=== PATIENT | male | born 1945 | race Caucasian/White ===

== ENCOUNTER → 2016-08-05 | Outpatient (CLI) | payer OTHER ==
[~2016-08-05] MED LIST: ASPI1TAB83 PO; ATOR-24 PO; DILT120C43 PO; LISI-729 PO; LORA-741 PO; NITR0.4S UT; OXYC7.5T78 PO
== END | disposition home or self-care (01) ==
LOC: C.LAB 09:56
PROVIDERS: ATTEND Urology
DX: N40.0 Benign prostatic hyperplasia without lower urinary tract symptoms (principal); R39.9 Unspecified symptoms and signs involving the genitourinary system; R97.20 Elevated prostate specific antigen [PSA]

== ENCOUNTER → 2017-02-09 | Outpatient (CLI) | payer OTHER ==
--- NOTE | 2017-02-13 12:59 | CODING QUERY MEDICAL NECESSITY ---
SUPPORTING DIAGNOSIS NEEDED A supporting diagnosis is required for the test/procedure performed on this patient in order for us to be reimbursed by the patient's insurance. Please provide a supporting diagnosis for the following test/procedure listed below next to the test name along with your signature. *If there is no additional diagnosis for this patient that would support the following test/procedure please document that below next to the test/procedure. Test(s)/Procedure(s) that require a supporting diagnosis: * PSA DIAGNOSIS: Provider Signature: Date: Thank you Kristi Rivas [employer] Once completed, please kindly fax back to [phone] For questions please call [phone]
== END | disposition home or self-care (01) ==
LOC: C.LAB 09:09
PROVIDERS: ATTEND Urology
DX: N41.1 Chronic prostatitis (principal); R97.20 Elevated prostate specific antigen [PSA]; N40.1 Benign prostatic hyperplasia with lower urinary tract symptoms

== ENCOUNTER → 2017-04-23 | Outpatient (CLI) | payer OTHER ==
--- NOTE | 2017-04-23 08:01 | DIAGNOSTIC IMAGING REPORT ---
KUB CLINICAL HISTORY: 71 years-old Male presenting with N20.0 [id number]. TECHNIQUE: Single supine view of the abdomen was obtained. COMPARISON: 02/19/2016. FINDINGS: Previously noted calculus in the left kidney is unchanged in position. The presence of moderate stool burden and bowel gas degrade evaluation of the renal shadows. Allowing for this, no new renal calculus is noted. No calcification along the courses of the ureters. A calcification in the midline projecting over the bladder may represent a bladder calculus as seen on prior CT from 12/02/2014. Partially visualized internal fixation of the right femoral neck. IMPRESSION: 1. Moderate stool burden degrades evaluation. Allowing for this limitation, stable appearance of the left renal calculus. 2. Stable appearance of the suspected bladder calculus. Electronically signed by: Aleksandr Greene M.D. 04/23/2017 7:59 AM Dictated Date/Time: 04/23/2017 7:57 AM
== END | disposition home or self-care (01) ==
LOC: C.RAD 07:35
PROVIDERS: ATTEND Urology
DX: N20.0 Calculus of kidney (principal)

== ENCOUNTER → 2017-04-28 | Outpatient (CLI) | payer OTHER | END | disposition home or self-care (01) | LOC: C.LABSPEC 16:51 | PROVIDERS: ATTEND Urology | DX: R97.20 Elevated prostate specific antigen [PSA] (principal) ==

== ENCOUNTER → 2017-09-10 | Outpatient (CLI) | payer OTHER | END | disposition home or self-care (01) | LOC: C.LAB 08:47 | PROVIDERS: ATTEND Urology | DX: R97.20 Elevated prostate specific antigen [PSA] (principal) ==

== ENCOUNTER → 2017-09-15 | Outpatient (CLI) | payer OTHER | END | disposition home or self-care (01) | LOC: C.LABSPEC 17:06 | PROVIDERS: ATTEND Urology | DX: N39.0 Urinary tract infection, site not specified (principal) ==

== ENCOUNTER 2017-10-27 05:24 | Observation (INO) | payer OTHER ==
[2017-10-13 13:05] VITALS: BMI 31.0
--- NOTE | 2017-10-13 13:36 | PAT Medication Instructions ---
Service Date Oct 13, 2017. Current Home Medication List Aspirin (Aspirin), 81 MG PO QAM Atorvastatin (Lipitor), 40 MG PO QAM Diltiazem Hcl Coated Beads (Cartia Xt), 120 MG PO QAM Dutasteride (Avodart), 0.5 MG PO HS Lisinopril (Zestril), 5 MG PO QAM Lorazepam (Ativan), 0.5 MG PO QPM Nitroglycerin (Nitrostat), 0.4 MG UT UD PRN for Chest Pain Tamsulosin HCl (Tamsulosin HCl), 0.4 MG PO HS Medication Instructions For Your Scheduled Surgery -Continue as directed: Nitroglycerin (Nitrostat), 0.4 MG UT UD PRN for Chest Pain - Hold the following medications 7 days prior to surgery per your surgeon's instructions (OK per cardio): Aspirin (Aspirin), 81 MG PO QAM - Hold the following medications the morning of surgery: Lisinopril (Zestril), 5 MG PO QAM - Take the following medications the morning of surgery with a sip of water: Atorvastatin (Lipitor), 40 MG PO QAM Diltiazem Hcl Coated Beads (Cartia Xt), 120 MG PO QAM - Take the following medications as scheduled the night before surgery: Dutasteride (Avodart), 0.5 MG PO HS Lorazepam (Ativan), 0.5 MG PO QPM Tamsulosin HCl (Tamsulosin HCl), 0.4 MG PO HS If you have any questions please call us at [phone] or [phone] or [phone]
--- NOTE | 2017-10-13 14:21 | DIAGNOSTIC IMAGING REPORT ---
CHEST 2 VIEWS ROUTINE CLINICAL HISTORY: PAT preoperative evaluation COMPARISON STUDY: 12/02/2014 FINDINGS: Mild cardia megaly. Minimal atelectasis left base. Lungs otherwise appear clear. IMPRESSION: Minimal atelectasis left base. Mild cardia megaly. Otherwise negative study. The above report was generated using voice recognition software. It may contain grammatical, syntax or spelling errors. Electronically signed by: Bob Benites M.D. 10/13/2017 2:20 PM Dictated Date/Time: 10/13/2017 2:18 PM
[2017-10-13 15:32] LABS: BASO % 0.4 %; BASO ABS # 0.03 K/uL (0-0.2); EOS % 8.7 %; EOS ABS # 0.61 K/uL (0-0.5); HEMATOCRIT 46.8 % (42-52); HEMOGLOBIN 15.5 g/dL (14.0-18.0); IG# 0.01 K/uL (0.00-0.02); LYMPH % 29.4 %; LYMPH ABS # 2.06 K/uL (1.2-3.4); MEAN CELL VOLUME 91.6 fL (80-100); MEAN CORPUSCULAR HEMOGLOBIN 30.3 pg (25-34); MEAN CORPUSCULAR HGB CONC 33.1 g/dl (32-36); MEAN PLATELET VOLUME 11.5 fL (7.4-10.4); MONO % 7.4 %; MONO ABS # 0.52 K/uL (0.11-0.59); NEUT ABS # 3.77 K/uL (1.4-6.5); PLATELET COUNT 196 K/uL (130-400); RED CELL DISTRIBUTION WIDTH SD 43.4 fL (36.4-46.3)
[2017-10-13 15:41] LABS: CREATININE 1.09 mg/dl (0.60-1.40); POTASSIUM 4.2 mmol/L (3.5-5.1)
[2017-10-27] VITALS (9 sets, daily range): BP systolic 102–130; BP diastolic 58–71; PULSE 60–68; TEMP 36.4–36.8; O2SAT 90–96; Ht 180.3 cm; Wt 103.3 kg
[~2017-10-27] VITALS: Ht 180.3 cm; Wt 103.3 kg
[~2017-10-27 05:24] MED LIST changes: +DUTA0.5C PO; +FLM4 PO; -OXYC7.5T78 PO
[2017-10-27] MEDS ORDERED: GENTAMICIN INJ 160 MG in DEXTROSE 5% 100ML 100 ML IV SCH ×2 (06:00→07:00)
[2017-10-27] MEDS ORDERED: LACTATED RINGER'S 1000ML 1,000 ML IV SCH (06:00)
[2017-10-27] MEDS ORDERED: ATROPINE SULFATE 0.1 MG/ML 5ML SYR IV PRN (07:00)
[2017-10-27] MEDS ORDERED: HYDROmorphone INJ 2 MG/ML SYR/VIAL IV PRN (07:00)
[2017-10-27] MEDS ORDERED: ONDANSETRON INJ 2 MG/ML 2 ML VIAL IV PRN ×2 (07:00→09:45)
[2017-10-27] MEDS ORDERED: EpHEDrine SULFATE INJ 50 MG/ML AMP IV PRN (07:00)
[2017-10-27] MEDS ORDERED: PHENYLEPHRINE 100MCG/ML 5ML SYR IV PRN (07:00)
[2017-10-27] MEDS ORDERED: DEXAMETHASONE SOD INJ 4 MG/ML VIAL ONE (07:04)
[2017-10-27] MEDS ORDERED: FENTANYL CITRATE INJ 50 MCG/1 ML 2 ML VIAL ONE ×2 (07:04→08:36)
[2017-10-27] MEDS ORDERED: MIDAZOLAM HCL 1 MG/ML 2ML VIAL ONE (07:04)
[2017-10-27] MEDS ORDERED: LIDOCAINE HCL 2% 2 ML VIAL (20MG/ML) ONE (07:04)
[2017-10-27] MEDS ORDERED: ONDANSETRON INJ 2 MG/ML 2 ML VIAL ONE (07:04)
[2017-10-27] MEDS ORDERED: PROPOFOL IV EMULSION 10 MG/ML 20 ML VIAL IV ONE (07:04)
--- NOTE | 2017-10-27 07:20 | History & Physical Bridge Note ---
H&P Re-Evaluation Bridge Note: I have examined the patient, reviewed the History & Physical and in the interval since the performance of the History & Physical I have noted the following changes of clinical significance: No changes noted
[2017-10-27] MEDS ORDERED: PHENYLEPHRINE 100MCG/ML 5ML SYR ONE (08:03)
[2017-10-27] MEDS ORDERED: PHENYLEPHRINE HCL INJ 10 MG/ML VIAL ONE (08:03)
[2017-10-27] MEDS ORDERED: EpHEDrine SULFATE 50MG/5ML SYR ONE ×2 (08:03→08:06)
--- NOTE | 2017-10-27 09:25 | [facility] Post Operative Brief Note ---
Immediate Operative Summary Operative Date Oct 27, 2017. Pre-Operative Diagnosis incomplete emptying, bladder stones, and benign prostatic hyperplasia Post-Operative Diagnosis same as preop Procedure(s) Performed Bipolar Transurethral Resection Prostate, Cystolithopaxy Surgeon Dr. Joe Gottlieb Alcohol Still Operator Surgeon(s) None Estimated Blood Loss 50CC Findings Consistent with Post-Op Diagnosis Specimens A.) Bladder Stones for chemical analysis B.) Prostate Chips Drains 22 sloan 30 cc ballon Anesthesia Type General Complication(s) none
[2017-10-27] MEDS ORDERED: NITROGLYCERIN 0.4 MG SL PER TAB CHARGE UT PRN (09:45)
[2017-10-27] MEDS ORDERED: GENTAMICIN CONSULT ACTIVE PRN (09:45)
[2017-10-27] MEDS ORDERED: MoRPHine SULFATE 4 MG/ML 1 ML CARP\\VIAL IV PRN (09:45)
[2017-10-27] MEDS ORDERED: HYDROCODONE/ACETAMIN 5/325MG TAB PO PRN (09:45)
--- NOTE | 2017-10-27 11:05 | OPERATIVE REPORT ---
DATE OF OPERATION: 10/27/2017 PROCEDURE PERFORMED: Transurethral resection of the prostate as well as laser lithotripsy of bladder stone. HISTORY OF PRESENTATION: The patient is a 72-year-old male with history of chronic bladder infections and chronically elevated PSA, status post previous biopsy and multiple courses of antibiotics, with suspected chronic infection as a source of possible elevation of his PSA. On cystoscopy, he had bladder stone and a moderately obstructing prostate with large postvoid residuals in the office. We discussed the option of a TURP to try to get rid of the infected bladder stone as a source of possible infection and also get some prostate tissue for both pathology and to try to see if getting rid of some of the infected prostate might be of benefit. DESCRIPTION OF PROCEDURE: The patient was taken to the operating room where general anesthesia was given. He was given preoperative gentamicin and had Venodyne stockings placed prior to the anesthesia. He was prepped and draped in the usual sterile fashion in dorsal lithotomy position. A 21-Russian cystoscope was passed per urethra. There was a very small stricture which was easily dilated with the scope and then the bladder was carefully examined with the 30- and the 70-degree lens. There was no evidence of any tumor but there were 2 bladder stones, approximately 1 cm each located in the bladder. Using the scope and 550-degree laser fiber through a 5-Russian open-ended catheter, the stones were fragmented to multiple 2-3 mm pieces which were then removed using the resectoscope and a loop. After this was performed, the transurethral resection was performed. I did resect approximately 5-7 grams of tissue. There were some areas where pus could clearly be seen oozing from the prostate and in one area of the bladder neck where 3-4 mL of pus came, so there were clearly areas of infection in the prostate. Resection was performed down to the verumontanum but care was taken not to include the verumontanum and go beyond the verumontanum in terms of the resection, so there was some residual prostate at the apex. However, there was a clear open channel taken from the apex into the bladder and a picture was taken of this. There was no evidence of any bleeding at the end of the procedure. I did use a button after doing some resection to smooth up the prostate as well as to control all bleeding. At the end of the procedure, there was no evidence of any bleeding and a 22-Russian Hanson catheter was placed after all the chips had been removed from the bladder and the patient was transferred to the recovery room in stable condition. I attest to the content of the Intraoperative Record and any orders documented therein. Any exception s are noted below.
--- NOTE | 2017-10-27 11:07 | Anesthesiology Progress Note ---
Anesthesia Post Op Note Date & Time Oct 27, 2017 at 11:06 Vital Signs Pain Intensity: 0 Vital Signs Past 12 Hours Date Time Temp Pulse Resp B/P (MAP) Pulse Ox O2 Delivery O2 Flow Rate FiO2 10/27/17 10:40 36. 63 18 112/61 96 Nasal Cannula 2 10/27/17 10:30 36. 63 18 104/74 96 Nasal Cannula 2 10/27/17 10:20 36. 61 18 110/62 96 Nasal Cannula 2 10/27/17 10:10 36. 64 18 112/62 93 Room Air 10/27/17 10:00 64 18 114/63 98 Room Air 10/27/17 09:50 66 18 114/58 98 Oxymask 10 10/27/17 09:40 66 18 118/57 98 Oxymask 10 10/27/17 09:31 36. 70 16 113/63 96 Oxymask 10 10/27/17 05:45 36.5 68 18 130/68 (88) 96 Room Air Notes Mental Status: alert / awake / arousable, participated in evaluation Pt Amnestic to Procedure: Yes Nausea / Vomiting: adequately controlled Pain: adequately controlled Airway Patency, RR, SpO2: stable & adequate BP & HR: stable & adequate Hydration State: stable & adequate Anesthetic Complications: no major complications apparent
[2017-10-27] MEDS ORDERED: IV FLUIDS COMPLETED PRN (11:30)
[2017-10-27] MEDS: D5W AND 1/2NSS + 20MEQ KCL 1,000 ML IV SCH ×2 (11:54→20:33)
[2017-10-27] MEDS ORDERED: GENTAMICIN INJ 280 MG in DEXTROSE 5% 100ML 100 ML IV ONE (12:00)
[2017-10-27] MEDS ORDERED: LORAZEPAM 0.5 MG TAB PO SCH (21:00)
[2017-10-28 03:15] VITALS: BP 111/66; PULSE 68; TEMP 36.9; O2SAT 94
[2017-10-28] MEDS: D5W AND 1/2NSS + 20MEQ KCL 1,000 ML IV SCH ×2 (04:18→12:00)
[2017-10-28 08:17] VITALS: BP 124/74; PULSE 59; TEMP 36.5; O2SAT 97
[2017-10-28 08:55] VITALS: BP 121/71; PULSE 61
[2017-10-28] MEDS ORDERED: ATORVASTATIN 40 MG TAB PO SCH (09:00)
[2017-10-28] MEDS ORDERED: DILTIAZEM HCL 120 MG CAPCR PO SCH (09:00)
[2017-10-28] MEDS ORDERED: LISINOPRIL 5 MG TAB PO SCH (09:00)
[2017-10-28] MEDS ORDERED: GENTAMICIN INJ 80 MG in DEXTROSE 5% 100ML 100 ML IV ONE (09:00)
--- NOTE | 2017-10-28 09:35 | Progress Note ---
Subjective Date of Service: Oct 28, 2017. Subjective Pt evaluation today including: conversation w/ patient, chart review 72 yo male s/p cystolithopaxy and TURP. Pt's sloan catheter fell out overnight. He is voiding ~200ml per void, but continues to retain 600ml. Pt denies pain. Denies n/v. Review of Systems Constitutional: No fever, No chills Respiratory: No shortness of breath Cardiac: No chest pain Abdomen: No pain, No nausea, No vomiting Male : + hematuria Heme: No abnormal bleeding/bruising Objective Vital Signs Date Time Temp Pulse Resp B/P (MAP) Pulse Ox O2 Delivery O2 Flow Rate FiO2 10/28/17 08:55 61 121/71 (88) 10/28/17 08:17 36.5 59 18 124/74 (91) 97 Room Air 10/28/17 07:45 Room Air 10/28/17 03:15 36.9 68 16 111/66 (81) 94 Room Air 10/27/17 23:30 Room Air 10/27/17 23:05 36.7 60 16 108/63 (78) 95 Room Air 10/27/17 19:50 36.8 65 16 104/58 (73) 94 Room Air 10/27/17 16:20 36.7 65 18 104/65 (78) 90 Room Air 10/27/17 15:15 Nasal Cannula 3.0 10/27/17 14:22 67 20 102/60 (74) 91 Nasal Cannula 2.0 10/27/17 13:10 36.6 65 16 124/62 (82) 94 Nasal Cannula 2.0 10/27/17 12:23 36.5 61 16 103/61 (75) 90 Nasal Cannula 2.0 10/27/17 11:45 36.4 63 16 115/71 (86) 95 Nasal Cannula 2.0 10/27/17 10:50 Nasal Cannula 2.0 10/27/17 10:50 91 Nasal Cannula 2.0 10/27/17 10:50 36.5 66 18 115/71 (86) 91 Nasal Cannula 2.0 10/27/17 10:40 36. 63 18 112/61 96 Nasal Cannula 2 10/27/17 10:30 36. 63 18 104/74 96 Nasal Cannula 2 10/27/17 10:20 36. 61 18 110/62 96 Nasal Cannula 2 10/27/17 10:10 36. 64 18 112/62 93 Room Air 10/27/17 10:00 64 18 114/63 98 Room Air 10/27/17 09:50 66 18 114/58 98 Oxymask 10 10/27/17 09:40 66 18 118/57 98 Oxymask 10 10/27/17 09:31 36. 70 16 113/63 96 Oxymask 10 Physical Exam General Appearance: no apparent distress Eyes: normal inspection ENT: hearing grossly normal Neck: no JVD Respiratory/Chest: no respiratory distress, no accessory muscle use Cardiovascular: no JVD Extremities: normal inspection Neurologic/Psychiatric: alert, normal mood/affect, oriented x 3 Skin: normal color Laboratory Results Last 24 Hours Test 10/27/17 12:55 Hepatitis C Antibody Screen NEG Assessment and Plan POD #1 s/p TURP and cystolithopaxy AFVSS. Pt doing well post-op. 20Fr coude sloan catheter replaced for 700ml dark jarrett colored urine return. Urine initially dark jarrett, but was light pink at end of drainage. 20ml sterile water placed in balloon. Will plan to d/c home today with sloan catheter in place. TOV as an outpatient on Thursday10-30-17. D/c home with 3 days of Cipro. Discharge planning: home
[2017-10-28] MEDS ORDERED: CIPR1TAB10 PO (09:38)
--- NOTE | 2017-10-28 09:45 | Discharge Instructions ---
Discharge Instructions Date of Service Oct 28, 2017. Admission Reason for Admission: Benign Prostatic Hypertrophy, Bladder Stone Discharge Discharge Diagnosis / Problem: BPH, bladder stone Discharge Goals Goal(s): Decrease discomfort, Improve disease control, Therapeutic intervention Activity Recommendations Activity Limitations: as noted below Lifting Limitations: no more than 25 pounds (x 2 weeks) Exercise/Sports Limitations: rest today, gradually increase as tolerated ( Light activity x 2 weeks ) May Resume Sexual Activity: after follow-up appointment (when cleared by Dr. Gottlieb ) Shower/Bathe: no limitations (OK to shower. No tub baths with catheter in place. ) Driving or Machine Use: resume 1 day after discharge . Current Hospital Diet Patient's current hospital diet: AHA Diet (Heart Healthy) Discharge Diet Recommended Diet: Regular Diet Procedures Procedures Performed: Bipolar Transurethral Resection Prostate, Cystolithopaxy Pending Studies Studies pending at discharge: yes List of pending studies: prostate tissue Medical Emergencies . Who to Call and When: Medical Emergencies: If at any time you feel your situation is an emergency, please call 911 immediately. . Non-Emergent Contact Non-Emergency issues call your: Urologist Call Non-Emergent contact if: temperature is above 101.5, your pain is not controlled, your pain is worsening, your pain is unusual for you, your pain is concerning you, you have any medication questions . . "Provider Documentation" section prepared by Ilana Cavazos. .
[2017-10-28 10:19] VITALS: O2SAT 95
[2017-10-28 10:26] VITALS: BP 121/71; PULSE 61; TEMP 36.5; O2SAT 95
--- NOTE | 2017-10-28 10:42 | Anesthesiology Progress Note ---
Anesthesia Post Op Note Date & Time Oct 28, 2017 at 10:41 Vital Signs Pain Intensity: 2.0 Vital Signs Past 12 Hours Date Time Temp Pulse Resp B/P (MAP) Pulse Ox O2 Delivery O2 Flow Rate FiO2 10/28/17 10:19 95 Room Air 10/28/17 08:55 61 121/71 (88) 10/28/17 08:17 36.5 59 18 124/74 (91) 97 Room Air 10/28/17 07:45 Room Air 10/28/17 03:15 36.9 68 16 111/66 (81) 94 Room Air 10/27/17 23:30 Room Air 10/27/17 23:05 36.7 60 16 108/63 (78) 95 Room Air
== END 2017-10-28 12:18 | disposition home or self-care (01) ==
LOC: C.ACU 05:24 → C.MSW 09:43 → ENRESERV 10:38
PROVIDERS: ADMIT Urology; ATTEND Urology
DX: N21.0 Calculus in bladder (principal); N41.1 Chronic prostatitis; N42.32 Atypical small acinar proliferation of prostate; N40.1 Benign prostatic hyperplasia with lower urinary tract symptoms; N13.8 Other obstructive and reflux uropathy; R97.20 Elevated prostate specific antigen [PSA]; E78.00 Pure hypercholesterolemia, unspecified; I10 Essential (primary) hypertension; Z79.82 Long term (current) use of aspirin; Z79.899 Other long term (current) drug therapy

== ENCOUNTER 2018-10-07 22:28 | Inpatient (IN) ==
[2018-10-07] MEDS ORDERED: MoRPHine SULFATE 4 MG/ML 1 ML CARP\\VIAL IV STA (23:42)
[2018-10-07] MEDS ORDERED: ONDANSETRON INJ 2 MG/ML 2 ML VIAL IV STA (23:42)
[2018-10-08 00:12] LABS: Basophils # (auto) 0.01 K/uL (0-0.2); Basophils % (auto) 0.1 %; Eosinophils # (auto) 0.03 K/uL (0-0.5); Eosinophils % (auto) 0.4 %; Hematocrit (blood only) 45.3 % (42-52); Hemoglobin 15.1 g/dL (14.0-18.0); Immature Granulocytes # (auto) 0.02 K/uL (0.00-0.02); Immature Granulocytes % (auto) 0.2 %; Lymphocytes # (auto) 0.51 K/uL (1.2-3.4); Lymphocytes % (auto) 6.1 %; Mean Corpuscular Hgb Conc 33.3 g/dL (32-36); Mean Corpuscular Volume 91.5 fL (80-100); Mean Platelet Volume 11.9 fL (7.4-10.4); Monocytes # (auto) 0.27 K/uL (0.11-0.59); Monocytes % (auto) 3.3 %; Neutrophils # (auto) 7.46 K/uL (1.4-6.5); Neutrophils % (auto) 89.9 %; Platelet Count 180 K/uL (130-400); RDW Standard Deviation 43.3 fL (36.4-46.3); Red Blood Count 4.95 M/uL (4.7-6.1)
[2018-10-08 00:33] LABS: Albumin Level 3.6 gm/dl (3.4-5.0); BUN Creatinine Ratio 21.1 (10-20); Calcium 8.9 mg/dl (8.5-10.1); Creatinine Clr Calc Pharmacy 80.2 ml/min; Est GFR (Non-African American) 77.7
[2018-10-08 00:36] LABS: Albumin Globulin Ratio 0.9 (0.9-2); Bilirubin,Total 4.6 mg/dl (0.2-1); Globulin 3.8 gm/dl (2.5-4.0); Total Protein 7.4 gm/dl (6.4-8.2)
[2018-10-08] MEDS ORDERED: SODIUM CHLORIDE 0.9% 500 ML IV SCH (03:00)
--- NOTE | 2018-10-08 03:41 | History & Physical Report ---
Date of Service October 08, 2018 Assessment & Plan (1) Cholecystitis: Acute calculus cholecystitis Rule out choledocholithiasis with abnormal LFTs No sepsis for now Diarrhea rule out C. difficile CAD, stable cardiac disease as per [place] [facility] [place] last June 2018 hypertension, stable Hyperglycemia rule out DM hyperlipidemia on statin therapy GMF IV Ceftriaxone, Flagyl MRCP RE abnormal LFTs Surgery consult RE cholecystitis (ER provider already in touch with Dr. Adam.) Stool C. difficile check hemoglobin A1c DVT prophylaxis. SCDs RE possible surgery (Recommend pharmacologic anticoagulation with Lovenox 30 mg SQ daily once bleeding risk is deemed to be minimal and negligible pending Surgery evaluation.) Full code History of Present Illness Chief Complaint: Abdominal pain Primary Care Provider: Helder Rangel History obtained from patient, family, and records. Medical history significant for CAD, hypertension, hyperlipidemia, BPH, urolithiasis. Recent confinement October 2017 under urology service for TURP, bladder stone lithotripsy. 2 months ago patient and partner had the "stomach flu" which somewhat resolved. Diarrhea symptoms followed by intermittent achy upper abdominal discomfort with intermittent nausea and emesis, worsened with food intake. Patient seen at PCPs office 3 weeks ago. Abdominal ultrasound showed possible cirrhosis, hepatic and renal cysts, hydropic gallbladder with cholelithiasis, CT suggested for further evaluation of findings. Multiple hepatic cysts, distended gallbladder with cholelithiasis, bilateral renal cysts. Outpatient CT abdomen pelvis study done October 05 showed multiple hepatic cysts, distended gallbladder with cholelithiasis. PCP yet to contact patient on disposition for abnormal imaging results. Yesterday afternoon patient noted worsening upper a achy bdominal pain followed emesis symptoms. Loose stools, nonbloody, no fever, no chills. 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 Allergies Allergy/AdvReac Type Severity Reaction Status Date / Time Bactrim Allergy Unknown Rash/Hives Verified 10/27/17 05:39 sulfamethoxazole Allergy Unknown Rash/Hives Verified 10/07/18 23:33 trimethoprim Allergy Unknown Rash/Hives Verified 10/07/18 23:33 Home Medications Home Medications Medication Instructions Recorded Confirmed Type aspirin 81 mg PO DAILY 10/07/18 10/07/18 History atorvastatin 80 mg PO HS 10/07/18 10/07/18 History diltiazem HCl 120 mg PO QAM 10/07/18 10/07/18 History dutasteride 0.5 mg PO HS 10/07/18 10/07/18 History lisinopril 5 mg PO QAM 10/07/18 10/07/18 History lorazepam [Ativan] 0.5 mg PO HS 10/07/18 10/07/18 History nitroglycerin [Nitrostat] 0.4 mg SUBLINGUAL UD PRN 10/07/18 10/07/18 History Past Med/Surg History Medical History Myocardial infarction (Resolved) Femur fracture (Resolved) BPH loc w urin obs/LUTS BPH with elevated PSA Bradycardia (Acute) Obstructive uropathy (Acute) Renal stone (Acute) Hypertension Surgical History History of hip surgery (Resolved) H/O lithotripsy S/P TURP S/P cardiac catheterization S/P cataract surgery S/P colonoscopy Status post ORIF of fracture of ankle Social History Preferred Language: Occitan Communication Ability: Effective [employer]ed [employer]sembler Required: No Beliefs That Will Affect Care: None Current Living Situation: Significant Other Other Information That Helps Us Care for You: No Feels Safe at Home: Yes Safety Concerns: Feels Safe At This Time Smoking Status: Never smoker Hx Alcohol Use: Yes Hx Substance Use: No Review of Systems As per HPI, all 10 systems reviewed, all other ROS negative Physical Exam Vital Signs (Past 24 Hours): Last Vital Signs Temp 36.5 C 10/07/18 22:37 Pulse 60 10/08/18 02:36 Resp 18 10/08/18 02:36 BP 115/65 10/08/18 02:36 Pulse Ox 97 10/08/18 02:36 Physical Exam: GENERAL: Comfortable, pleasant, no respiratory distress SKIN: Normal color, warm HEENT: Partial alopecia, pink palpebral conjunctivae, no ptosis, dry buccal mucosa, nasal cannula in place NECK : Supple, no tenderness CHEST : CTA, no tenderness HEART : Bradycardic , no obvious murmurs ABDOMEN: Some distention, minimal epigastric tenderness EXTREMITIES : Chronic RLE swelling, no tenderness, no other conspicuous deformities noted NEUROLOGIC : Coherent, no facial asymmetry, no other gross focality Results & Data Laboratory Results Laboratory Results WBC 8.30 K/uL (4.8-10.8) 03/14/19 23:57 RBC 4.95 M/uL (4.7-6.1) 10/07/18 23:57 Hgb 15.1 g/dL (14.0-18.0) 10/07/18 23:57 Hct 45.3 % (42-52) 10/07/18 23:57 MCV 91.5 fL (80-100) 10/07/18 23:57 MCH 30.5 pg (25-34) 10/07/18 23:57 MCHC 33.3 g/dL (32-36) 10/07/18 23:57 RDW Std Deviation 43.3 fL (36.4-46.3) 10/07/18 23:57 RDW Coeff of Eriberto 13.0 % (11.5-14.5) 10/07/18 23:57 Plt Count 180 K/uL (130-400) 10/07/18 23:57 MPV 11.9 fL (7.4-10.4) H 10/07/18 23:57 Immature Gran % (Auto) 0.2 % 10/07/18 23:57 Neut % (Auto) 89.9 % 10/07/18 23:57 Lymph % (Auto) 6.1 % 10/07/18 23:57 [facility] % (Auto) 3.3 % 10/07/18 23:57 Eos % (Auto) 0.4 % 10/07/18 23:57 Baso % (Auto) 0.1 % 10/07/18 23:57 Immature Gran # (Auto) 0.02 K/uL (0.00-0.02) 10/07/18 23:57 Neut # (Auto) 7.46 K/uL (1.4-6.5) H 10/07/18 23:57 Lymph # (Auto) 0.51 K/uL (1.2-3.4) L 10/07/18 23:57 [facility] # (Auto) 0.27 K/uL (0.11-0.59) 10/07/18 23:57 Eos # (Auto) 0.03 K/uL (0-0.5) 10/07/18 23:57 Baso # (Auto) 0.01 K/uL (0-0.2) 10/07/18 23:57 Sodium 141 mmol/L (136-145) 10/07/18 23:57 Potassium 4.0 mmol/L (3.5-5.1) 10/07/18 23:57 Chloride 107 mmol/L (98-107) 10/07/18 23:57 Carbon Dioxide 29 mmol/L (21-32) 10/07/18 23:57 Anion Gap 5.0 (3-11) 10/07/18 23:57 BUN 21 mg/dl (7-18) H 10/07/18 23:57 Creatinine 0.97 mg/dl (0.6-1.4) 10/07/18 23:57 Est Cr Clr Drug Dosing 80.2 ml/min 10/07/18 23:57 Est GFR ( Amer) 90.0 10/07/18 23:57 Est GFR (Non-Af Amer) 77.7 10/07/18 23:57 BUN/Creatinine Ratio 21.1 (10-20) H 10/07/18 23:57 Glucose 146 mg/dl (70-99) H 10/07/18 23:57 Calcium 8.9 mg/dl (8.5-10.1) 10/07/18 23:57 Total Bilirubin 4.6 mg/dl (0.2-1) H 10/07/18 23:57 AST 399 U/L (15-37) H 10/07/18 23:57 ALT 256 U/L (12-78) H 10/07/18 23:57 Alkaline Phosphatase 289 U/L (45-117) H 10/07/18 23:57 Total Protein 7.4 gm/dl (6.4-8.2) 10/07/18 23:57 Albumin 3.6 gm/dl (3.4-5.0) 10/07/18 23:57 Globulin 3.8 gm/dl (2.5-4.0) 10/07/18 23:57 Albumin/Globulin Ratio 0.9 (0.9-2) 10/07/18 23:57 Lipase 97 U/L (73-393) 10/07/18 23:57 Diagnostic Findings Gallbladder ultrasound initial read multiple hepatic cysts, gallstones and sludge with wall thickening at 3-4 mm, unreliable sonographic Thomas sign. Chest x-ray as per my interpretation atelectasis EKG as per my interpretation rate 50, sinus bradycardia, T wave flattening inferior leads
[2018-10-08 04:00] LABS: Magnesium 2.3 mg/dl (1.8-2.4)
[2018-10-08] MEDS ORDERED: TRAMADOL HCL 50 MG TABLET PO PRN (06:01)
[2018-10-08] MEDS ORDERED: LORazepam 0.25 MG/0.5 ML VIAL IV PRN (06:01)
[2018-10-08] MEDS ORDERED: ACETAMINOPHEN 325 MG TAB PO PRN (06:01)
[2018-10-08] MEDS ORDERED: MoRPHine SULFATE 2 MG/ML CARP IV PRN (06:01)
[2018-10-08] MEDS ORDERED: PROCHLORPERAZINE 5 MG in SYRINGE 4 ML IV PRN (06:01)
[2018-10-08 06:25] LABS: Estimated Average Glucose 123 mg/dl; Hemoglobin A1C 5.9 % (4.5-5.6)
[2018-10-08] MEDS ORDERED: cefTRIAXone SODIUM 1,000 MG in DEXTROSE 5% 50 ML IV ONE (06:30)
[2018-10-08] MEDS: SODIUM CHLORIDE 0.45 % 1,000 ML IV SCH ×2 (06:32→23:56)
--- NOTE | 2018-10-08 06:46 | Emergency Department Note ---
Entered by Lauro Fields acting as a scribe for Deb Harrell DO History of Present Illness General Chief complaint: Abdominal Pain Stated complaint: LOWER ABDOMINAL PAIN, GALL BLADDER PAIN Time Seen by Provider: 10/07/18 23:03 Source: patient and family () History of Present Illness Provider complaint: Abdominal pain Onset (ago): week(s) 3 Location: abdomen Pain Consistency: + other ("comes in waves") Quality: + other (abdominal pain) Associated symptoms: + denies other symptoms (urinary symptoms), + nausea/vomiting (+vomiting) and + other (diarrhea) The patient is a 73 year old male who presents to the Emergency Room with complaints of lower abdominal pain that has been coming in waves for about 3 weeks. The patient states that he originally thought it was the stomach flu, but states that after it progressed he made an appointment to be evaluated. The patient states that he had blood work and an ultrasound of his lower abdomen 8 days ago and reports that he had a CT scan 2 days ago. The patient states that he believes the results of the ultrasound were inconclusive. Per the patient's appointment papers, the patient's CT scan results revealed multiple hepatic cysts, a distended gallbladder with stones, and bilateral renal cysts. The patient admits to 4-5 episodes of vomiting today which his states mainly consisted of "flem." The patient's reports that he threw up while in the ER as well. The patient admits to few episodes of diarrhea and states that he has been urinating normally. The patient admits to a history of kidney stones, but denies that this feels like his prior episodes. He also reports a history of an LA several years ago as well as high blood pressure. Home Medications Home Medications Medication Instructions Recorded Confirmed Type aspirin 81 mg PO DAILY 10/07/18 10/07/18 History atorvastatin 80 mg PO HS 10/07/18 10/07/18 History diltiazem HCl 120 mg PO QAM 10/07/18 10/07/18 History dutasteride 0.5 mg PO HS 10/07/18 10/07/18 History lisinopril 5 mg PO QAM 10/07/18 10/07/18 History lorazepam [Ativan] 0.5 mg PO HS 10/07/18 10/07/18 History nitroglycerin [Nitrostat] 0.4 mg SUBLINGUAL UD PRN 10/07/18 10/07/18 History Allergies Allergy/AdvReac Type Severity Reaction Status Date / Time Bactrim Allergy Unknown Rash/Hives Verified 10/27/17 05:39 sulfamethoxazole Allergy Unknown Rash/Hives Verified 10/07/18 23:33 trimethoprim Allergy Unknown Rash/Hives Verified 10/07/18 23:33 Past Med/Surg History Medical History Myocardial infarction (Resolved) Femur fracture (Resolved) BPH loc w urin obs/LUTS BPH with elevated PSA Bradycardia (Acute) Obstructive uropathy (Acute) Renal stone (Acute) Surgical History History of hip surgery (Resolved) Social History Feels Safe at Home: Yes Smoking Status: Never smoker Review of Systems See HPI for pertinent positives & negatives. and A total of 10 systems reviewed and were otherwise negative Physical Exam Vital Signs Vital Signs - 24 hr 10/07/18 22:37 10/08/18 00:07 10/08/18 00:13 Temperature 36.5 C Temperature Source Oral Sepsis Recent Fever Within 48 Hours No Sepsis Action Taken by Nursing No Action Required Pulse Rate 54 L Pulse Rate [Apical] 55 L Pulse Rate [Right Finger] Respiratory Rate 20 16 Respiratory Effort / Characteristics Non-Labored Spontaneous Non-Labored Spontaneous Respiratory Depth Normal Normal Blood Pressure 100/58 L Blood Pressure [Right Arm] 116/64 Blood Pressure Mean 72 Blood Pressure Mean [Right Arm] 81 Blood Pressure Position [Right Arm] Pulse Oximetry 94 87 L 95 Oxygen Delivery Method Room Air Room Air Nasal Cannula Oxygen Flow Rate 2 10/08/18 00:14 10/08/18 02:36 10/08/18 04:47 Temperature Temperature Source Sepsis Recent Fever Within 48 Hours Sepsis Action Taken by Nursing Pulse Rate Pulse Rate [Apical] 60 71 Pulse Rate [Right Finger] Respiratory Rate 18 18 Respiratory Effort / Characteristics Non-Labored Spontaneous Non-Labored Spontaneous Respiratory Depth Normal Normal Blood Pressure Blood Pressure [Right Arm] 115/65 126/72 Blood Pressure Mean Blood Pressure Mean [Right Arm] 81 90 Blood Pressure Position [Right Arm] Pulse Oximetry 87 L 97 97 Oxygen Delivery Method Room Air Nasal Cannula Room Air Oxygen Flow Rate 2 10/08/18 06:07 Temperature 36.8 C Temperature Source Oral Sepsis Recent Fever Within 48 Hours Sepsis Action Taken by Nursing Pulse Rate Pulse Rate [Apical] Pulse Rate [Right Finger] 58 L Respiratory Rate 16 Respiratory Effort / Characteristics Respiratory Depth Blood Pressure Blood Pressure [Right Arm] 119/72 Blood Pressure Mean Blood Pressure Mean [Right Arm] 87 Blood Pressure Position [Right Arm] Lying Pulse Oximetry 96 Oxygen Delivery Method Nasal Cannula Oxygen Flow Rate 2 General: Appears very uncomfortable HEENT: Head - normocephalic and atraumatic Pupils are equal, round, and reactive to light. Extraocular eye muscles are intact, and sclera are anicteric. Nose - moist nasal mucosa without discharge. Mouth - moist buccal mucosa. Oropharynx is nonerythematous and there is no tonsillar exudate or edema noted. Neck: Supple; no cervical lymphadenopathy. Heart: Regular rate and rhythm. There is a normal S1 and S2 with no murmurs, clicks, or gallops appreciated. Lungs: Clear to auscultation bilaterally with no wheezes, rales, or rhonchi. Abdomen: Soft, bilateral mid-abdominal pain with palpation, nondistended, with good bowel sounds. There are no palpable pulsatile masses or hepatosplenomegaly. There is no guarding, rigidity, or rebound noted. Extremities: No evidence of cyanosis, clubbing, or edema. There are easily palpable peripheral pulses. Skin: Pale, warm and dry with good turgor and no rashes. Course 2331: Past medical records reviewed. The patient was evaluated in room A12B, and a complete history and physical examination were performed. An IV lock were initiated and labs were drawn as above. Patient was given a dose of IV morphine and IV Zofran along with some IV normal saline solution. 0044: I reviewed the patient's results of abdominal x-ray from 09/22/18 which were unremarkable. I also reviewed the patient's abdominal ultrasound completed on 09/22/18 which revealed suggested cirrhosis, hepatic and renal cysts, a poorly visualized gallbladder with stones, and non-obstructing left nephrolithiasis. Labs from 09/22 revealed an ALT of 11 whereas today it is 256, an AST of 17 whereas today it was 399, and an ALK PHOS of 88 whereas today s was 289. 0045: I discussed the test results with the patient. 0245: I reevaluated the patient and he states he is feeling comfortable. We will hang another bag of IV fluids. Dr. Adam, General Surgery, was paged. 0251: I reviewed the patient's case with Dr. Adam, General Surgery. He states to have the patient admitted. Dr. Pa, [facility] Hospitalist, will evaluate the patient for further management. Consultations Consultation #1: Dr. Adam, General Surgery Time: 02:51 [facility]ation [facility]: [facility]51 Administered Medications Sodium Chloride (1/2 Nss) 1,000 mls @ 60 mls/hr IV .[id number] DIANA Stop: 11/07/18 06:14 Last Admin: 10/08/18 06:32 Dose: 60 mls/hr Documented by: [id number] Discontinued Medications Sodium Chloride (Nss) 500 mls @ 125 mls/hr IV .Q4H DIANA Stop: 11/07/18 02:59 Last Admin: 10/08/18 03:06 Dose: 125 mls/hr Documented by: [id number] Morphine Sulfate (Morphine Sulfate) 4 mg IV NOW STA Stop: 10/07/18 23:43 Last Admin: 10/08/18 00:08 Dose: 4 mg Documented by: [id number] Ondansetron HCl (Zofran) 4 mg IV NOW STA Stop: 10/07/18 23:43 Last Admin: 10/08/18 00:08 Dose: 4 mg Documented by: [id number] Medical Decision Making Differential Diagnosis The patient is a 73 year old male who presents to the Emergency Room with complaints of lower abdominal pain that has been coming in waves for about 3 w eeks. Differential diagnosis includes ureteral colic, diverticulitis, colitis, and cholecystitis. Medical Records Attestation: I reviewed the patient's medical records. Home Medications Current Medication List: was personally reviewed by me Laboratory Data Attestation: I reviewed the patient's lab results. Result diagrams: 10/07/18 23:57 10/07/18 23:57 Lab Results 10/07/18 10/07/18 10/07/18 Range/Units 23:57 23:57 23:57 WBC 8.30 (4.8-10.8) K/uL RBC 4.95 (4.7-6.1) M/uL Hgb 15.1 (14.0-18.0) g/dL Hct 45.3 (42-52) % MCV 91.5 (80-100) fL MCH 30.5 (25-34) pg MCHC 33.3 (32-36) g/dL RDW Std Deviation 43.3 (36.4-46.3) fL RDW Coeff of Eriberto 13.0 (11.5-14.5) % Plt Count 180 (130-400) K/uL MPV 11.9 H (7.4-10.4) fL Immature Gran % (Auto) 0.2 % Neut % (Auto) 89.9 % Lymph % (Auto) 6.1 % [place] % (Auto) 3.3 % Eos % (Auto) 0.4 % Baso % (Auto) 0.1 % Immature Gran # (Auto) 0.02 (0.00-0.02) K/uL Neut # (Auto) 7.46 H (1.4-6.5) K/uL Lymph # (Auto) 0.51 L (1.2-3.4) K/uL [place] # (Auto) 0.27 (0.11-0.59) K/uL Eos # (Auto) 0.03 (0-0.5) K/uL Baso # (Auto) 0.01 (0-0.2) K/uL Sodium 141 (136-145) mmol/L Potassium 4.0 (3.5-5.1) mmol/L Chloride 107 (98-107) mmol/L Carbon Dioxide 29 (21-32) mmol/L Anion Gap 5.0 (3-11) BUN 21 H (7-18) mg/dl Creatinine 0.97 (0.6-1.4) mg/dl Est Cr Clr Drug Dosing 80.2 ml/min Est GFR ( Amer) 90.0 Est GFR (Non-Af Amer) 77.7 BUN/Creatinine Ratio 21.1 H (10-20) Glucose 146 H (70-99) mg/dl Estimat Average Glucose 123 mg/dl Hemoglobin A1c 5.9 H (4.5-5.6) % Calcium 8.9 (8.5-10.1) mg/dl Magnesium 2.3 (1.8-2.4) mg/dl Total Bilirubin 4.6 H (0.2-1) mg/dl AST 399 H (15-37) U/L ALT 256 H (12-78) U/L Alkaline Phosphatase 289 H (45-117) U/L Total Protein 7.4 (6.4-8.2) gm/dl Albumin 3.6 (3.4-5.0) gm/dl Globulin 3.8 (2.5-4.0) gm/dl Albumin/Globulin Ratio 0.9 (0.9-2) Lipase 97 (73-393) U/L TSH 0.995 (0.300-4.500) uIu/ml Imaging Data Radiologist's Impression: Radiology results as stated below per my review and the radiologist's interpretation: US RUQ: Comparison: December 02, 2014 CT exam. Technically limited study due to bowel gas. Multiple hepatic cysts, largest measuring up to 9 cm. Suboptimal evaluation of the gallbladder. Suspected gallstones and sludge with wall thickening at 3-4 mm. The sonographic Thomas sign is unreliable due to pain medication. Common duct is not well seen. Obscuration of the pancreas by bowel gas. Right renal cyst. No hydronephrosis. Remainder unremarkable. Radiologist: Stanford Padilla M.D. Study ready at 02:03 and intial results transmitted at 02:37 ECG Data Attestation: I personally reviewed and interpreted this ECG as follows: Indication: other (abdominal pain) Rate (beats per minute): 47 Rhythm: sinus bradycardia Findings: + other (no ischemia); no ectopy Blood Pressure Blood Pressure Findings: Normal blood pressure Blood Pressure Disposition: did not require urgent referral MDM Narrative The patient is a 73 year old male who presents to the Emergency Room with complaints of lower abdominal pain that has been coming in waves for about 3 weeks. I reviewed the results of the previous CT scan of the abdomen/pelvis as well as a complete abdominal ultrasound and laboratory studies. The patient's pain has drastically worsened tonight. It was noted that his transaminases and alkaline phosphatase had significantly increased since September 22. Ultrasound of the gallbladder tonight shows some mild gallbladder wall thickening and sludge and stones were present. Because the patient significant pain as well as the elevated LFTs, I think the patient is suffering from acute cholecystitis. I discussed the case with the surgeon operations support professionals and he recommended admission to internal medicine for a possible HIDA scan and GI consult as well. Impression & Plan Cholelithiasis, Abdominal pain, diffuse Discharge Plan Visit Data *Final* Discharge Date/Time: 10/08/18 04:52 Chief Complaint: Abdominal Pain Stated Complaint: LOWER ABDOMINAL PAIN, GALL BLADDER PAIN ED Provider: Deb Harrell Discharge Problem: Cholelithiasis, Abdominal pain, diffuse Patient Disposition: Admitted As Inpatient Discharge Instructions Interventions: ED Discharge Assessment Last Done: 10/08/18 04:52 Discharge Problem: Cholelithiasis Qualifiers: Cholelithiasis location: gallbladder Cholecystitis presence: with cholecystitis Cholecystitis acuity: acute Biliary obstruction: without biliary obstruction Qualified Code(s): K80.00 - Calculus of gallbladder with acute cholecystitis without obstruction The scribe's documentation has been prepared under my direction and personally reviewed by me in its entirety. I confirm that the note above accurately reflects all work, treatment, procedures, and medical decision making performed by me.
--- NOTE | 2018-10-08 06:56 | XRay Report ---
XR chest 1V portable CLINICAL HISTORY: low o2 COMPARISON STUDY: Chest radiograph October 13, 2017. FINDINGS: There is no pneumothorax or pleural effusion. Cardiac size is normal. Mediastinal contours are unremarkable. Lung volumes are mildly diminished. There is no evidence for pulmonary edema. Linea r left basilar opacity favors atelectasis. IMPRESSION: 1. Linear left basilar opacity which favors atelectasis. 2. Low lung volumes. Electronically signed by: David Burch M.D. 10/08/2018 6:55 AM
--- NOTE | 2018-10-08 07:16 | Magnetic Resonance Report ---
MRCP CLINICAL HISTORY: Abdominal pain. Abnormal liver function tests. COMPARISON STUDY: CT of the abdomen and pelvis December 02, 2014. TECHNIQUE: Utilizing a 1.5 Nancy magnet, multiplanar, multiecho imaging of the abdomen was performed without intravenous contrast. FINDINGS: Multiple hepatic cysts are noted, including a 10.2 cm hepatic cyst within the gallbladder f rupert. Unenhanced images of the spleen, adrenal glands and pancreas are unremarkable. There is no panc reatic ductal dilatation. There is no peripancreatic infiltration. No abdominal lymphadenopathy is pr esent. The moderate to marked gallbladder distention with gallbladder wall thickening is noted. Sludg e and stones are noted within the gallbladder. Exam is compromised by respiratory motion artifact how ever there are is probable choledocholithiasis with a distal common bile duct calculus which measures approximately 6 mm. There is no biliary ductal dilatation. There are suspected bilateral renal cysts which are suboptimally assessed on this unenhanced examination. IMPRESSION: 1. Cholelithiasis, moderate to marked gallbladder distention and gallbladder wall thickening. These f indings suggest acute cholecystitis. 2. Suspected choledocholithiasis although exam mildly compromised by respiratory motion artifact. No biliary ductal dilatation. 3. Multiple hepatic and bilateral renal cysts. Electronically signed by: David Burch M.D. 10/08/2018 7:15 AM
--- NOTE | 2018-10-08 07:39 | Ultrasound Report ---
US gallbladder CLINICAL HISTORY: 73 years-old Male presenting with eval for choley, right upper quadrant pain, nause a, vomiting. TECHNIQUE: Real-time grayscale and limited color Doppler ultrasound imaging of the abdomen limited to the right upper quadrant was performed. COMPARISON: CT from 2015. FINDINGS: Pancreas: Largely obscured due to overlying bowel gas. Liver: Normal echogenicity and echotexture apart from the presence of multiple prominent hepatic cyst s. The liver measures 17.5 cm in maximal sagittal dimension. Main portal vein grossly patent with nor mal directional flow. Biliary: No intrahepatic biliary ductal dilatation. Common bile duct not well visualized. Gallbladder: Extensive hyperechogenic debris within the gallbladder with posterior shadowing, likely mixture of small gallstones and gallbladder sludge. The gallbladder is distended with wall thickening evident. The gallbladder measures 15 cm in length. Unable to assess sonographic Thomas's sign. Right kidney: Normal in appearance without evidence of hydronephrosis. Ascites: None. Other: None. IMPRESSION: Findings highly suspicious for acute calculus cholecystitis. Surgical consultation recommended. Confi rmation with HIDA scan could be obtained if there is clinical concern. The report will be called/faxed according to standard departmental protocol. Electronically signed by: Aleksandr Greene M.D. 10/08/2018 7:38 AM
[2018-10-08] MEDS: ASPIRIN 81 MG ECTAB PO SCH (08:46)
[2018-10-08] MEDS: AVODART~ORDER AWAITING ACTION SCH ×3 (08:46→23:56)
[2018-10-08] MEDS: dilTIAZem HCL 120 MG CAPCR PO SCH (08:46)
[2018-10-08] MEDS: LISINOPRIL 5 MG TAB PO SCH (08:46)
[2018-10-08] MEDS: metroNIDAZOLE 500 MG/100 ML BAG IV SCH ×3 (09:01→21:06)
--- NOTE | 2018-10-08 09:18 | Gastrointestinal Consultation ---
Date of Consultation October 08, 2018 Assessment & Plan (1) Choledocholithiasis with acute cholecystitis: Mr. Louis presents with RUQ pain, jaundice, imaging suggestive of choledocholithiasis He reports chills suggestive of cholangitis though no leukocytosis. Plan: 1. ERCP this afternoon by Dr. Dior. 2. IV fluids, antibiotics, NPO 3. Surgical consult for eventual cholecystectomy. Present on Admission?: Yes Supervising Physician Co-Signing Physician Notes I have personally seen and examined the patient with MCKAY Samson. Her note reflects my exam and findings. I agree with her impression and plan. Agree with ERCP given obstructive biliary numbers and MRI features. Discussed with patient and at bedside. Stella Gale M.D. History of Present Illness Reason for Consultation: Abnormal MRCP Requesting Physician: Dr. Pa Attending Physician: Henry Turcios MD History of Present Illness Mr. Christiano Louis is a 69 yr old male patient of Dr. Rangel with a hx of CAD/MA, BPH, kidney stones who reports 3-4 weeks of intermittent upper abdomen pain, nausea and diarrhea, typically after eating high fat foods. He has had a 15 lbs weight loss. when asked, he also reports intermittent chills, specifically occurring last night. He presented to [facility] ED last evening for severe pain. On arrival, LFTs were elevated: T Bili 4.6, AST 399, ALT 256, Alk Phos 289, but there was no leukocytosis or fever. Pt is awake, alert, hemodynamically stable, and is NPO, with IV fluids and antibiotics: Rocephin, Flagyl. He reports that the pain continues but is currently low grade. Allergies Allergy/AdvReac Type Severity Reaction Status Date / Time Bactrim Allergy Unknown Rash/Hives Verified 10/27/17 05:39 sulfamethoxazole Allergy Unknown Rash/Hives Verified 10/07/18 23:33 trimethoprim Allergy Unknown Rash/Hives Verified 10/07/18 23:33 Home Medications Home Medications Medication Instructions Recorded Confirmed Type aspirin 81 mg PO DAILY 10/07/18 10/07/18 History atorvastatin 80 mg PO HS 10/07/18 10/07/18 History diltiazem HCl 120 mg PO QAM 10/07/18 10/07/18 History dutasteride 0.5 mg PO HS 10/07/18 10/07/18 History lisinopril 5 mg PO QAM 10/07/18 10/07/18 History lorazepam [Ativan] 0.5 mg PO HS 10/07/18 10/07/18 History nitroglycerin [Nitrostat] 0.4 mg SUBLINGUAL UD PRN 10/07/18 10/07/18 History Patient History Medical History Myocardial infarction (Resolved) Femur fracture (Resolved) BPH loc w urin obs/LUTS BPH with elevated PSA Bradycardia (Acute) Obstructive uropathy (Acute) Renal stone (Acute) Hypertension Surgical History History of hip surgery (Resolved) H/O lithotripsy S/P TURP S/P cardiac catheterization S/P cataract surgery S/P colonoscopy Status post ORIF of fracture of ankle Social History Preferred Language: Greenlandic Communication Ability: Effective Tobacco Flavorer Required: No Beliefs That Will Affect Care: None Current Living Situation: Significant Other Other Information That Helps Us Care for You: No Feels Safe at Home: Yes Safety Concerns: Feels Safe At This Time Smoking Status: Never smoker Hx Alcohol Use: Yes Hx Substance Use: No Review of Systems Gen: Denies fever, weakness, weight loss. Eyes: no vision changes, no eye redness or pain Respiratory: No SOB, no cough Cardiovascular: No irregular heartbeats or chest pain Abdomen: + abdominal pain, nausea, vomiting, diarrhea. Ext: No edema Hem: No excessive bruising/bleeding skin: no jaundice, itching or rashes Physical Exam Vital Signs (Past 24 Hours): Last Vital Signs Temp 36.8 C 10/08/18 06:07 Pulse 58 L 10/08/18 06:07 Resp 16 10/08/18 06:07 BP 119/72 10/08/18 06:07 Pulse Ox 96 10/08/18 06:07 Constitutional: WD/WN, vitals as above average body habitus and cooperative Eyes: PERRL, conjunctivae normal, anicteric sclerae ENMT: external ear and nose normal, oropharynx normal Neck: trachea midline, no thyromegaly Respiratory: normal respiratory effort, lungs clear to auscultation Cardiovascular: RRR, no murmur, no edema Gastrointestinal (Abdomen): Inspection/Auscultation: abdomen not distended Percussion/Palpation: + abdomen tender (epigastric) and abdomen soft Skin: normal turgor and + jaundice; no lesions Neurologic: PERRL, EOMI, accommodation nl, no face palsy, no dysarthria Psychiatric: A+Ox3, euthymic affect Lymphatic: no cervical or axillary lymphadenopathy Left lower arm with non tender, non pulsatile protruberant soft mass - ? lymphedema Results & Data Laboratory Results See HPI Diagnostic Findings MRCP: 1. Cholelithiasis, moderate to marked gallbladder distention and gallbladder wall thickening. These findings suggest acute cholecystitis. 2. Suspected choledocholithiasis although exam mildly compromised by respiratory motion artifact. No biliary ductal dilatation. 3. Multiple hepatic and bilateral renal cysts. US: Findings highly suspicious for acute calculus cholecystitis. Surgical consultation recommended. Confirmation with HIDA scan could be obtained if there is clinical concern.
[2018-10-08 09:29] LABS: Basophils # (auto) 0.02 K/uL (0-0.2); Basophils % (auto) 0.3 %; Eosinophils # (auto) 0.09 K/uL (0-0.5); Eosinophils % (auto) 1.1 %; Hematocrit (blood only) 43.2 % (42-52); Hemoglobin 14.2 g/dL (14.0-18.0); Immature Granulocytes # (auto) 0.02 K/uL (0.00-0.02); Immature Granulocytes % (auto) 0.3 %; Lymphocytes # (auto) 1.44 K/uL (1.2-3.4); Lymphocytes % (auto) 18.4 %; Mean Corpuscular Hgb Conc 32.9 g/dL (32-36); Mean Corpuscular Volume 91.7 fL (80-100); Mean Platelet Volume 12.2 fL (7.4-10.4); Monocytes # (auto) 0.55 K/uL (0.11-0.59); Neutrophils # (auto) 5.72 K/uL (1.4-6.5); Neutrophils % (auto) 72.9 %; Platelet Count 191 K/uL (130-400); RDW Coefficient of Variation 13.1 % (11.5-14.5); RDW Standard Deviation 43.9 fL (36.4-46.3); Red Blood Count 4.71 M/uL (4.7-6.1); White Blood Count 7.84 K/uL (4.8-10.8)
[2018-10-08 09:57] LABS: Albumin Level 3.4 gm/dl (3.4-5.0); BUN Creatinine Ratio 23.3 (10-20); Calcium 8.9 mg/dl (8.5-10.1); Creatinine Clr Calc Pharmacy 87.3 ml/min; Est GFR (Non-African American) 85.4; Potassium 3.9 mmol/L (3.5-5.1)
[2018-10-08 10:02] LABS: Bilirubin,Total 3.9 mg/dl (0.2-1); Globulin 3.5 gm/dl (2.5-4.0); Total Protein 6.9 gm/dl (6.4-8.2)
--- NOTE | 2018-10-08 10:13 | Anesthesiology Consultation ---
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 Consults Requested none History Surgery Operation Date: 10/08/18 09:00 Proposed Procedures p Endoscopic Retrograde Cholangiopancreatogram - Mary Dior MD Height/Weight Height: 5 ft 11 in Weight: 92.7 kg Allergies Allergy/AdvReac Type Severity Reaction Status Date / Time Bactrim Allergy Unknown Rash/Hives Verified 10/27/17 05:39 sulfamethoxazole Allergy Unknown Rash/Hives Verified 10/07/18 23:33 trimethoprim Allergy Unknown Rash/Hives Verified 10/07/18 23:33 Medications Home Medications Medication Instructions Recorded Confirmed Last Taken aspirin 81 mg PO DAILY 10/07/18 10/07/18 10/07/18 atorvastatin 80 mg PO HS 10/07/18 10/07/18 10/06/18 diltiazem HCl 120 mg PO QAM 10/07/18 10/07/18 10/07/18 dutasteride 0.5 mg PO HS 10/07/18 10/07/18 Unknown lisinopril 5 mg PO QAM 10/07/18 10/07/18 10/07/18 lorazepam [Ativan] 0.5 mg PO HS 10/07/18 10/07/18 Unknown nitroglycerin [Nitrostat] 0.4 mg SUBLINGUAL UD PRN 10/07/18 10/07/18 Unknown Active Medications Generic Name Dose Route Start Last Admin Trade Name Freq PRN Reason Stop Dose Admin Aspirin 81 mg 10/08/18 09:00 10/08/18 08:46 Ecotrin Ectab PO 11/07/18 08:59 81 mg DAILY DIANA Administration Diltiazem HCl 120 mg 10/08/18 09:00 10/08/18 08:46 Cardizem Cd PO 11/07/18 08:59 120 mg QAM DIANA Administration Metronidazole 500 mg in 100 mls @ 100 mls/hr 10/08/18 06:30 10/08/18 10:14 Flagyl IV 10/18/18 06:29 Infused Q8 DIANA Titration Sodium Chloride 1,000 mls @ 60 mls/hr 10/08/18 06:15 10/08/18 09:35 1/2 Nss IV 11/07/18 06:14 60 mls/hr .[id number] DIANA Infusion Lisinopril 5 mg 10/08/18 09:00 10/08/18 08:46 Zestril PO 11/07/18 08:59 5 mg QAM DIANA Administration Miscellaneous 1 ea 10/08/18 08:00 10/08/18 08:46 Order Awaiting Action N/A 11/07/18 07:59 Not Given QS DIANA Past Medical History Medical History Myocardial infarction (Resolved) Femur fracture (Resolved) BPH loc w urin obs/LUTS BPH with elevated PSA Bradycardia (Acute) Obstructive uropathy (Acute) Renal stone (Acute) Hypertension Past Surgical History Surgical History History of hip surgery (Resolved) H/O lithotripsy S/P TURP S/P cardiac catheterization S/P cataract surgery S/P colonoscopy Status post ORIF of fracture of ankle Social History Smoking Status: Never smoker Hx Alcohol Use: Yes Alcohol type: wine alcohol intake frequency: a few times a week Hx Substance Use: No Physical Exam Vital Signs Last Vital Signs Temp 98.2 F 10/08/18 06:07 Pulse 58 L 10/08/18 06:07 Resp 16 10/08/18 06:07 BP 119/72 10/08/18 06:07 Pulse Ox 96 10/08/18 06:07 Testing Electrocardiogram Date: 10/07/18 Sinus bradycardia with sinus arrhythmia, rate 47 bpm Low voltage QRS Septal infarct , age undetermined Possible Inferior infarct , age undetermined When compared with ECG of 04-DEC-2014 07:35, No significant change was found Chest X-Ray Date: 10/08/18 1. Linear left basilar opacity which favors atelectasis. 2. Low lung volumes. Laboratory Results 10/08/18 08:54 10/08/18 08:54 Hemoglobin A1c 5.9 % (4.5-5.6) H 10/07/18 23:57
--- NOTE | 2018-10-08 10:28 | Surgery Consultation ---
Date of Consultation October 08, 2018 Assessment & Plan (1) Choledocholithiasis with acute cholecystitis: feeling better clinically. MRCP suggests CBD stone for ERCP today planning lap joy tomorrow am discussed risks /options ( bleeding/infection/bile leaks/injury to an organ/dvt/pe/mi/cva etc..) questions answered will tentatively plan lap joy tomorrow am pt agrees with plan History of Present Illness Attending Physician: Henry Turcios MD History of Present Illness pt has had some intermittent upper abdominal pain with n/v...yesterday had similar episode only more severe. w/u has revealed acute calculous cholecystitis and likely choledocholithiasis. Allergies Allergy/AdvReac Type Severity Reaction Status Date / Time Bactrim Allergy Unknown Rash/Hives Verified 10/27/17 05:39 sulfamethoxazole Allergy Unknown Rash/Hives Verified 10/07/18 23:33 trimethoprim Allergy Unknown Rash/Hives Verified 10/07/18 23:33 Home Medications Home Medications Medication Instructions Recorded Confirmed Type aspirin 81 mg PO DAILY 10/07/18 10/07/18 History atorvastatin 80 mg PO HS 10/07/18 10/07/18 History diltiazem HCl 120 mg PO QAM 10/07/18 10/07/18 History dutasteride 0.5 mg PO HS 10/07/18 10/07/18 History lisinopril 5 mg PO QAM 10/07/18 10/07/18 History lorazepam [Ativan] 0.5 mg PO HS 10/07/18 10/07/18 History nitroglycerin [Nitrostat] 0.4 mg SUBLINGUAL UD PRN 10/07/18 10/07/18 History Patient History Medical History Myocardial infarction (Resolved) Femur fracture (Resolved) BPH loc w urin obs/LUTS BPH with elevated PSA Bradycardia (Acute) Obstructive uropathy (Acute) Renal stone (Acute) Hypertension Surgical History History of hip surgery (Resolved) H/O lithotripsy S/P TURP S/P cardiac catheterization S/P cataract surgery S/P colonoscopy Status post ORIF of fracture of ankle Social History Preferred Language: Lao Communication Ability: Effective Operator Vacuum Required: No Beliefs That Will Affect Care: None Current Living Situation: Significant Other Other Information That Helps Us Care for You: No Feels Safe at Home: Yes Safety Concerns: Feels Safe At This Time Smoking Status: Never smoker Hx Alcohol Use: Yes Hx Substance Use: No Review of Systems negative except for as written in HPI Physical Exam Vital Signs (Past 24 Hours): Last Vital Signs Temp 36.8 C 10/08/18 06:07 Pulse 58 L 10/08/18 06:07 Resp 16 10/08/18 06:07 BP 119/72 10/08/18 06:07 Pulse Ox 96 10/08/18 06:07 Physical Exam: alert/oriented. nad Heent: Pearla. eomi. sclera appear white Heart: RRR Lungs: CTA b/l abd: soft. +ttp RUQ ext: no c/c/e
[2018-10-08 10:31] LABS: Appearance Urine Clear (Clear); Bacteria Urine Automated Negative (Negative); Blood Urine Negative (Negative); Epithelial Cell Urine Auto >30 /lpf (0-5); Glucose Urine UA Negative (Negative); Ketones Urine Trace (Negative); Leukocyte Esterase Urine 1+ (Negative); Nitrite Urine Positive (Negative); Protein Urine Negative (Negative); Specific Gravity Urine 1.027 (1.000-1.030); Urobilinogen Urine Positive (Negative)
[2018-10-08 10:33] LABS: Bilirubin Urine 2+ (Negative); Color Urine Amber; Ictotest Urine Positive (Negative)
[2018-10-08 10:53] LABS: Cast Urine Automated 0 /lpf (0-5)
[2018-10-08 10:54] LABS: Calcium Oxalate Crystals Urine Present (None Prsent); Mucus Urine Present (None Prsent)
--- NOTE | 2018-10-08 13:35 | History & Physical Bridge Note ---
Date of Service October 08, 2018 History & Physical Bridge Note I have examined the patient, reviewed the History & Physical and in the interval since the performance of the History & Physical I have noted the following changes of clinical significance: no changes noted ERCP for decompression of bile duct
[2018-10-08] MEDS ORDERED: ROCURONIUM BROMIDE 10 MG/ML 5 ML VIAL ONE (15:32)
[2018-10-08] MEDS ORDERED: PROPOFOL IV EMULSION 10 MG/ML 20 ML VIAL IV ONE (15:32)
[2018-10-08] MEDS ORDERED: LIDOCAINE HCL 2% 2 ML VIAL/AMP(20MG/ML) INFIL ONE (15:32)
[2018-10-08] MEDS ORDERED: fentaNYL citrate 100 MCG/2 ML VIAL ONE (15:32)
[2018-10-08] MEDS ORDERED: ONDANSETRON INJ 2 MG/ML 2 ML VIAL ONE (15:32)
[2018-10-08] MEDS ORDERED: HYDROmorphone INJ 2 MG/ML SYR/VIAL IV PRN (15:38)
[2018-10-08] MEDS ORDERED: fentaNYL citrate 100 MCG/2 ML VIAL IV PRN (15:38)
[2018-10-08] MEDS ORDERED: ONDANSETRON INJ 2 MG/ML 2 ML VIAL IV PRN (15:38)
[2018-10-08] MEDS ORDERED: DEXAMETHASONE SOD INJ 4 MG/ML VIAL IV PRN (15:38)
[2018-10-08] MEDS ORDERED: ATROPINE SULFATE 0.1 MG/ML 10ML SYR IV PRN (15:38)
[2018-10-08] MEDS ORDERED: ePHEDrine sulfate 50 MG/ML AMP IV PRN (15:38)
[2018-10-08] MEDS ORDERED: DEXAMETHASONE SOD INJ 4 MG/ML VIAL ONE (16:11)
[2018-10-08] MEDS ORDERED: INDOMETHACIN 50 MG SUPP PR ONE (16:21)
[2018-10-08] MEDS ORDERED: GLYCOPYRROLATE 0.2 MG/ML VIAL ONE (16:21)
[2018-10-08] MEDS ORDERED: NEOSTIGMINE METHYLSULFATE 5 MG/5 ML SYR ONE (16:21)
--- NOTE | 2018-10-08 16:31 | Operative Report ---
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 Any exceptions are noted below.
--- NOTE | 2018-10-08 16:52 | GI REPORT ---
Patient Name: Christiano Louis Procedure Date: 10/08/2018 11:43 AM Date of : 1945 Admit Type: Inpatient Age: 73 Gender: Male Attending MD: Mary Dior MD Procedure: ERCP Providers: Mary Dior MD Referring MD: Henry Turcios Md Indications: Abnormal MRCP, For therapy of bile duct stone(s), Jaundice Medicines: General Anesthesia Complications: No immediate complications. Estimated Blood Loss: Estimated blood loss: none. Procedure: Pre-Anesthesia Assessment: - Prior to the procedure, a History and Physical was performed, and patient medications and allergies were reviewed. The patient is competent. The risks and benefits of the procedure and the sedation options and risks were discussed with the patient. All questions were answered and informed consent was obtained. Patient identification and proposed procedure were verified by the physician and the nurse in the procedure room. Mental Status Examination: alert and oriented. Airway Examination: normal oropharyngeal airway and neck mobility. Respiratory Examination: clear to auscultation. CV Examination: normal. ASA Grade Assessment: II - A patient with mild systemic disease. After reviewing the risks and benefits, the patient was deemed in satisfactory condition to undergo the procedure. The anesthesia plan was to use general anesthesia. Immediately prior to administration of medications, the patient was re-assessed for adequacy to receive sedatives. The heart rate, respiratory rate, oxygen saturations, blood pressure, adequacy of pulmonary ventilation, and response to care were monitored throughout the procedure. The physical status of the patient was re-assessed after the procedure. After obtaining informed consent, the scope was passed under direct vision. Throughout the procedure, the patient's blood pressure, pulse, and oxygen saturations were monitored continuously. The Scope was introduced through the mouth, and advanced to the duodenum and used to inject contrast into the bile duct. The ERCP was accomplished without difficulty. The patient tolerated the procedure well. Findings: The affirmative action specialist film was normal. The esophagus was successfully intubated under direct vision. The scope was advanced to a normal major papilla in the descending duodenum without detailed examination of the pharynx, larynx and associated structures, and upper GI tract. The upper GI tract was grossly normal. A 0.035 inch straight standard wire was passed into the biliary tree. The Fusion OMNI sphincterotome was passed over the guidewire and the bile duct was then deeply cannulated. Contrast was injected. I personally interpreted the bile duct images. Ductal flow of contrast was adequate. Image quality was adequate. Contrast extended to the main bile duct. Opacification of the main bile duct was successful. The lower third of the main bile duct contained multiple stones. Biliary sphincterotomy was made with a monofilament Fusion OMNI sphincterotome using ERBE electrocautery. There was no post-sphincterotomy bleeding. The biliary tree was swept with an 11.5 mm balloon starting at the bifurcation. Sludge was swept from the duct. Many stones were removed. No stones remained. One 10 Fr by 7 cm plastic stent with a single external flap and a single internal flap was placed into the common bile duct. Bile flowed through the stent. The stent was in good position. The total fluoroscopy exposure time was 1 minute and 49 seconds. Indomethacin 100 mg was given via suppository to decrease the risk of post-ERCP pancreatitis (PEP). Impression: - Choledocholithiasis was found. Complete removal was accomplished by biliary sphincterotomy and balloon extraction. - One plastic stent was placed into the common bile duct. Recommendation: - [facility]. - Clear liquid diet. - Repeat ERCP in 4 weeks to remove stent. - Lap Dahlia tomorrow per surgery. - Recall Gi if needed. Mary Dior MD 10/08/2018 4:52:10 PM This report has been signed electronically. Note Initiated On: 10/08/2018 11:43 AM Number of Addenda: 0 I attest to the content of the Intraoperative Record and orders documented therein, exceptions below {[id number]}
--- NOTE | 2018-10-08 16:56 | Fluoroscopy Report ---
INTRAOPERATIVE RADIOGRAPHS CLINICAL HISTORY: ERCP procedure. Fluoroscopy time: 50 seconds. FINDINGS: 3 spot fluoroscopic views of the right upper quadrant from an ERCP procedure are correlated with MRCP dated 10/08/2018. The initial image shows numerous filling defects within the common bile d uct consistent with choledocholithiasis. A balloon sweep is performed. The third image shows a common bile duct stent in place. IMPRESSION: Intraoperative ERCP images as above. See operative report for detailed findings. Electronically signed by: Akash Heck M.D. 10/08/2018 4:54 PM
--- NOTE | 2018-10-08 17:18 | Anesthesiology Progress Note ---
Date of Service October 08, 2018 Anesthesia Post Procedure Vital Signs Vital Signs: Temp Pulse Pulse Pulse Resp BP BP 10/08/18 17:10 54 L 19 133/68 10/08/18 17:00 54 L 15 132/71 10/08/18 16:50 52 L 13 128/72 10/08/18 16:40 36.2 C L 56 L 18 119/68 10/08/18 15:36 36.5 C 82 16 112/66 10/08/18 06:07 36.8 C 58 L 16 119/72 10/08/18 04:47 71 18 126/72 10/08/18 02:36 60 18 115/65 10/08/18 00:14 10/08/18 00:13 55 L 16 116/64 10/08/18 00:07 10/07/18 22:37 36.5 C 54 L 20 100/58 L Pulse Ox 10/08/18 17:10 100 10/08/18 17:00 99 10/08/18 16:50 100 10/08/18 16:40 98 10/08/18 15:36 92 10/08/18 06:07 96 10/08/18 04:47 97 10/08/18 02:36 97 10/08/18 00:14 87 L 10/08/18 00:13 95 10/08/18 00:07 87 L 10/07/18 22:37 94 Pain Intensity Abdomen: Pain Intensity: 0 Notes Mental Status: alert / awake / arousable Patient Amnestic to Procedure: Yes Nausea / Vomiting: adequately controlled Pain: adequately controlled Airway Patency, RR, SpO2: stable & adequate BP & HR: stable & adequate Hydration State: stable & adequate Anesthetic Complications: no major complications apparent Notes: Awake, doing well, no complaints. VSS
--- NOTE | 2018-10-08 17:18 | Hospitalist Progress Note ---
Date of Service October 08, 2018 Assessment & Plan (1) Cholecystitis: Acute calculus cholecystitis Choledocholithiasis S/P ERCP:Removal of gallstones, Billiary Sphincterotomy, CBD stent placement Clear liquid diet NPO after midnight Lap Cholecystectomy in AM Appreciate GI/Surgery help Needs CBD stent removal in 4 weeks Monitor LFTs Continue IV Abx Diarrhea R/O C.diff if diarrhea reoccurs CAD stable Follows with [facility] cardiology Continue Aspirin, Cardizem, Lisinopril Hold Statin for now Hypertension stable Continue home meds Hyperglycemia A1C:5.9 Advise dietary changes Hyperlipidemia Hold statin DVT Px: SCDs RE surgery AM Code Status Full code Subjective Patient is seen and examined at [facility] States feeling better today Abd pain resolved Denies chest pain, SOB, dizziness, nausea Family at bedside Had ERCP today Physical Exam Vital Signs (Past 24 Hours): Last Vital Signs Temp 36.2 C L 10/08/18 16:40 Pulse 54 L 10/08/18 17:00 Resp 15 10/08/18 17:00 BP 132/71 10/08/18 17:00 Pulse Ox 99 10/08/18 17:00 Physical Exam: Physical Exam: Vitals signs as noted above General Appearance:Moderately built and nourished, no apparent distress Head: normocephalic, Atraumatic Eyes: normal inspection, EOMI Neck: supple, Trachea midline Respiratory/Chest: Normal breath sounds, CTA Cardiovascular: S1, S2, No murmur Abdomen/GI:Soft, Non tender, Bowel sounds present Extremities/Musculoskelatal:normal inspection, no edema Neurologic/Psych:AAOX3, grossly no focal neurological deficits Skin: normal color, warm Results & Data Laboratory Results Short CBC 10/07/18 10/08/18 Range/Units 23:57 08:54 WBC 8.30 7.84 (4.8-10.8) K/uL Hgb 15.1 14.2 (14.0-18.0) g/dL Hct 45.3 43.2 (42-52) % Plt Count 180 191 (130-400) K/uL BMP 10/07/18 10/08/18 23:57 08:54 Sodium 141 144 Potassium 4.0 3.9 Chloride 107 108 H Carbon Dioxide 29 30 BUN 21 H 21 H Creatinine 0.97 0.89 Glucose 146 H 93 Calcium 8.9 8.9 Liver Function 10/07/18 10/08/18 Range/Units 23:57 08:54 Total Bilirubin 4.6 H 3.9 H (0.2-1) mg/dl AST 399 H 365 H (15-37) U/L ALT 256 H 335 H (12-78) U/L Alkaline Phosphatase 289 H 275 H (45-117) U/L Albumin 3.6 3.4 (3.4-5.0) gm/dl Urine 10/08/18 Range/Units 10:15 Urine Color Cynthia Urine Appearance Clear (Clear) Urine pH 6.0 (4.5-7.5) Ur Specific [place] 1.027 (1.000-1.030) Urine Protein Negative (Negative) Urine Glucose (UA) Negative (Negative)
--- NOTE | 2018-10-08 19:07 | Anesthesiology Consultation ---
Date of Service October 08, 2018 Assessment & Plan (1) Encounter for pre-operative examination: Chart Review Chart Review: Acceptable Risk for Surgery and Patient NOT seen in Pre Admission Testing Consults Requested none ASA [id number] Proposed Anesthesia Anesthesia Type: General Risk / Benefits Reviewed With: PT / POA / Parent / Guardian, Accepts Plan and Informed Consent Obtained NPO Date Last Intake of Fluids: 10/08/18 Time Last Intake of Fluids: 22:00 Last Intake of Fluids Comment: sip of water with AM meds Date Last Intake of Solids: 10/08/18 Time Last Intake of Solids: 18:00 History Surgery Operation Date: 10/08/18 09:00 Proposed Procedures p Endoscopic Retrograde Cholangiopancreatogram - Mary Dior MD Operation Date: 10/09/18 07:30 Proposed Procedures p Laparoscopic Cholecystectomy, Possible Cholangiogram - Graeme Lindsay DO Height/Weight Height: 1.8 m Weight: 92.7 kg Allergies Allergy/AdvReac Type Severity Reaction Status Date / Time Bactrim Allergy Unknown Rash/Hives Verified 10/27/17 05:39 sulfamethoxazole Allergy Unknown Rash/Hives Verified 10/07/18 23:33 trimethoprim Allergy Unknown Rash/Hives Verified 10/07/18 23:33 Medications Home Medications Medication Instructions Recorded Confirmed Last Taken aspirin 81 mg PO DAILY 10/07/18 10/07/18 10/07/18 atorvastatin 80 mg PO HS 10/07/18 10/07/18 10/06/18 diltiazem HCl 120 mg PO QAM 10/07/18 10/07/18 10/07/18 dutasteride 0.5 mg PO HS 10/07/18 10/07/18 Unknown lisinopril 5 mg PO QAM 10/07/18 10/07/18 10/07/18 lorazepam [Ativan] 0.5 mg PO HS 10/07/18 10/07/18 Unknown nitroglycerin [Nitrostat] 0.4 mg SUBLINGUAL UD PRN 10/07/18 10/07/18 Unknown Active Medications Generic Name Dose Route Start Last Admin Trade Name Freq PRN Reason Stop Dose Admin Aspirin 81 mg 10/08/18 09:00 10/08/18 08:46 Ecotrin Ectab PO 11/07/18 08:59 81 mg DAILY DIANA Administration Diltiazem HCl 120 mg 10/08/18 09:00 10/08/18 08:46 Cardizem Cd PO 11/07/18 08:59 120 mg QAM DIANA Administration Metronidazole 500 mg in 100 mls @ 100 mls/hr 10/08/18 06:30 10/09/18 06:31 Flagyl IV 10/18/18 06:29 Infused Q8 DIANA Infusion Sodium Chloride 1,000 mls @ 60 mls/hr 10/08/18 06:15 10/09/18 06:08 1/2 Nss IV 11/07/18 06:14 60 mls/hr .[id number] DIANA Infusion Ceftriaxone Sodium 1,000 mg/ 50 mls @ 100 mls/hr 10/09/18 05:00 10/09/18 06:06 Dextrose IV 10/19/18 04:59 Infused Q24H DIANA Infusion Protocol Lisinopril 5 mg 10/08/18 09:00 10/08/18 08:46 Zestril PO 11/07/18 08:59 5 mg QAM DIANA Administration Lorazepam 0.5 mg 10/08/18 21:00 10/08/18 21:16 Ativan PO 11/07/18 20:59 Not Given HS DIANA Miscellaneous 1 ea 10/08/18 08:00 10/08/18 23:56 Order Awaiting Action N/A 11/07/18 07:59 Not Given QS DIANA Past Medical History Medical History Myocardial infarction (Resolved) 22 years ago Femur fracture (Resolved) BPH loc w urin obs/LUTS BPH with elevated PSA Bradycardia (Acute) Obstructive uropathy (Acute) Renal stone (Acute) Hypertension Past Surgical History Surgical History History of hip surgery (Resolved) H/O lithotripsy S/P ERCP 10/08/18 under GETA without apparent complications S/P TURP S/P cardiac catheterization S/P cataract surgery S/P colonoscopy Status post ORIF of fracture of ankle Past Anesthesia History No Hx of Anesthesia Complications and No Family Hx of Anesthesia Complications History of PONV No Motion Sickness Screening History of Motion Sickness: No Social History Smoking Status: Never smoker Do You Dip or Chew Tobacco: No Hx Alcohol Use: Yes Alcohol type: wine alcohol intake frequency: a few times a week Hx Substance Use: No Exercise / Class Metabolic Activity II 4-5 Yardwork/Stairs/Walk up hill Physical Exam Vital Signs Last Vital Signs Temp 36.5 C 10/09/18 03:49 Pulse 62 10/09/18 03:49 Resp 16 10/09/18 03:49 BP 95/58 L 10/09/18 03:49 Pulse Ox 94 10/09/18 03:49 ENMT Mouth: no TMJ abnormality and no TMJ clicking Thyromental Distance: > or= 3.5 Finger Breadths Mallampati Class: II Neck normal visual inspection; neck extension not limited Respiratory Auscultation: lungs clear to auscultation bilaterally Cardiovascular Rate/Rhythm: regular rhythm and + bradycardic (Sinus segun) Psychiatric Orientation: alert and oriented x 3 Testing Electrocardiogram Date: 10/07/18 Sinus bradycardia with sinus arrhythmia, rate 47 bpm Low voltage QRS Septal infarct , age undetermined Possible Inferior infarct , age undetermined When compared with ECG of 04-DEC-2014 07:35, No significant change was found Chest X-Ray Date: 10/08/18 1. Linear left basilar opacity which favors atelectasis. 2. Low lung volumes. Laboratory Results 10/08/18 08:54 10/09/18 06:15 Hemoglobin A1c 5.9 % (4.5-5.6) H 10/07/18 23:57 Urine Color Cynthia 10/08/18 10:15 Urine Appearance Clear (Clear) 10/08/18 10:15 Urine pH 6.0 (4.5-7.5) 10/08/18 10:15 Ur Specific [place] 1.027 (1.000-1.030) 10/08/18 10:15 Urine Protein Negative (Negative) 10/08/18 10:15 Urine Glucose (UA) Negative (Negative) 10/08/18 10:15 Urine Ketones Trace (Negative) H 10/08/18 10:15 Urine Nitrite Positive (Negative) H 10/08/18 10:15 Ur Leukocyte Esterase 1+ (Negative) H 10/08/18 10:15 Urine WBC (Auto) 10-30 /hpf (0-5) H 10/08/18 10:15 Urine RBC (Auto) 10-30 /hpf (0-4) H 03/15/19 10:15 U Hyaline Cast (Auto) 0 /lpf (0-5) 10/08/18 10:15 U Epithel Cells (Auto) >30 /lpf (0-5) H 10/08/18 10:15 Urine Bacteria (Auto) Negative (Negative) 10/08/18 10:15
[2018-10-08] MEDS: LORazepam 0.5 MG TAB PO SCH (21:16)
[2018-10-09] MEDS: cefTRIAXone SODIUM 1,000 MG in DEXTROSE 5% 50 ML IV SCH (05:32)
[2018-10-09] MEDS: metroNIDAZOLE 500 MG/100 ML BAG IV SCH ×3 (05:32→21:17)
[2018-10-09] MEDS ORDERED: BUPIVACAINE/EPINEPHRINE 0.5% MPF 1:200,000 30 ML VIAL ONE (06:44)
[2018-10-09] MEDS ORDERED: GLYCOPYRROLATE 0.2 MG/ML VIAL ONE ×2 (06:52→08:10)
[2018-10-09] MEDS ORDERED: NEOSTIGMINE METHYLSULFATE 5 MG/5 ML SYR ONE (06:52)
[2018-10-09] MEDS ORDERED: LIDOCAINE HCL 2% 2 ML VIAL/AMP(20MG/ML) INFIL ONE (06:52)
[2018-10-09] MEDS ORDERED: DEXAMETHASONE SOD INJ 4 MG/ML VIAL ONE (06:52)
[2018-10-09] MEDS ORDERED: MIDAZOLAM HCL 1 MG/ML 2ML VIAL ONE (06:52)
[2018-10-09] MEDS ORDERED: PROPOFOL IV EMULSION 10 MG/ML 20 ML VIAL IV ONE (06:52)
[2018-10-09] MEDS ORDERED: ONDANSETRON INJ 2 MG/ML 2 ML VIAL ONE (06:52)
[2018-10-09] MEDS ORDERED: fentaNYL citrate 100 MCG/2 ML VIAL ONE ×2 (06:53→10:01)
[2018-10-09 07:17] LABS: Albumin Level 2.9 gm/dl (3.4-5.0); BUN Creatinine Ratio 27.2 (10-20); Bilirubin Direct 0.6 mg/dl (0-0.2); Calcium 8.2 mg/dl (8.5-10.1); Creatinine Clr Calc Pharmacy 92.5 ml/min; Est GFR (African American) 101.4; Est GFR (Non-African American) 87.5
[2018-10-09 07:21] LABS: Bilirubin,Total 2.6 mg/dl (0.2-1); Total Protein 6.4 gm/dl (6.4-8.2)
--- NOTE | 2018-10-09 07:31 | History & Physical Bridge Note ---
Date of Service October 09, 2018 History & Physical Bridge Note I have examined the patient, reviewed the History & Physical and in the interval since the performance of the History & Physical I have noted the following changes of clinical significance: no changes noted
[2018-10-09] MEDS ORDERED: ATROPINE SULFATE 0.1 MG/ML 10ML SYR IV PRN (07:37)
[2018-10-09] MEDS ORDERED: HYDROmorphone INJ 1 MG/ML SYRINGE IV PRN (07:37)
[2018-10-09] MEDS ORDERED: ONDANSETRON INJ 2 MG/ML 2 ML VIAL IV PRN (07:37)
[2018-10-09] MEDS ORDERED: ePHEDrine sulfate 50 MG/ML AMP IV PRN (07:37)
[2018-10-09] MEDS ORDERED: PHENYLEPHRINE 100MCG/ML 5ML SYR IV PRN (07:37)
[2018-10-09] MEDS ORDERED: LARYING-O-JET KIT (LTA) ONE (08:11)
[2018-10-09] MEDS ORDERED: ROCURONIUM BROMIDE 10 MG/ML 5 ML VIAL ONE (08:11)
[2018-10-09] MEDS ORDERED: ePHEDrine sulfate 50 MG/ML SYR ONE (08:11)
[2018-10-09] MEDS ORDERED: KETOROLAC 30 MG/ML VIAL ONE (08:13)
--- NOTE | 2018-10-09 09:54 | Operative Report ---
Post Operative Report Pre & Post Diagnosis Operation Date: 10/08/18 09:00 Pre-Op Diagnosis: CHOLECYSTITIS Post-Op Diagnosis: CHOLECYSTITIS; Operation Date: 10/09/18 07:30 Pre-Op Diagnosis: CHOLECYSTITIS Post-Op Diagnosis: CHOLECYSTITIS; multiple hepatic cysts; adhesions Procedure Operation Date: 10/08/18 09:00 Actual Procedures p Endoscopic Retrograde Cholangiopancreatogram(Not Applicable) - Mary Dior MD Operation Date: 10/09/18 07:30 Actual Procedures p Laparoscopic Cholecystectomy(Not Applicable) ; enterolysis- Graeme Lindsay DO Surgeon Graeme Lindsay DO C Iron Worker None Estimated Blood Loss 20 Findings Consistent with Post-Op Diagnosis Specimens gallbladder Description of Procedure After informed consent was obtained the patient was taken to the operating room and placed in the supine position. After successful intubation the abdomen was sterilely prepped and draped in usual fashion. A periumbilical incision was made with an 11 blade scalpel and carried down through the soft tissue using electrocautery. The anterior rectus fascia was opened using electrocautery and 2 #0 Vicryl stay sutures were placed. The peritoneum was elevated with hemostats and incised under direct vision using Metzenbaum scissors. A finger sweep was performed and a 12 mm Montano trocar was placed. The abdomen was insufflated to 18 mmHg. The laparoscope was inserted and the abdomen was examined in 360. The gallbladder was massively enlarged and inflamed. There were also many what appeared to be simple hepatic cyst. There is a very large cyst abutting the gallbladder itself. A subxiphoid 5 mm port which would later be converted to a 12 mm port and 2 right upper quadrant 5 mm ports were placed under direct vision. The patient was placed in a reverse Trendelenburg position and slightly airplaned to the left. Because of the distention I had to drain the gallbladder partially with a gallbladder needle. I obtained dark thick bilious fluid. The gallbladder was grasped and elevated superiorly and laterally. A [place] dissector was used to take down adhesions around the neck of the gallbladder. The cystic duct was identified and skeletonized. Because of the inflammation in size of the duct I did not feel comfortably simply clipping it. I therefore converted the subxiphoid port to a 12 mm port and used a STEPHANIE brown cartridge stapler to transect the cystic duct right at the junction with the neck of the gallbladder. In similar fashion the cystic artery was identified and skeletonized clipped and divided. There was a second posterior branch to the cystic artery that was clipped and divided as well. The gallbladder was removed from the gallbladder fossa with electrocautery. This was a tedious dissection as I had to take care not to rupture the abutting cyst. I was able to remove the gallbladder without rupturing the gallbladder or the cyst. It was placed into an Endo Catch bag though it was too large to fit in even the largest bag that we have. I therefore had to extend the umbilical inc ision in order to remove the gallbladder. Thorough irrigation was performed. At the end of the procedure there was adequate hemostasis and no evidence of any bile leaks. A final look around the abdomen showed no other abnormalities. The gallbladder and trochars were all removed and the abdomen was desufflated. The fascia of the camera port was closed using 0 Vicryl in interrupted [id number] fashion. All the wounds were irrigated and closed using 4-0 Monocryl. I closed the deep space of the supraumbilical incision with 2-0 Vicryl and then 4- 0 Monocryl. Marcaine was injected around them for postoperative analgesia and skin glue used as a dressing. The patient was awaken extubated and transferred to recovery in stable condition. I attest to the content of the Intraoperative Record and any orders documented therein. Any exceptions are noted below.
[2018-10-09] MEDS: fentaNYL citrate 100 MCG/2 ML VIAL IV PRN ×4 (10:02→10:18)
--- NOTE | 2018-10-09 10:34 | Anesthesiology Progress Note ---
Date of Service October 09, 2018 Anesthesia Post Procedure Vital Signs Vital Signs: Temp Pulse Pulse Pulse Resp BP Pulse Ox 10/09/18 10:25 36.8 C 55 L 18 111/53 L 94 10/09/18 10:15 36.8 C 49 L 12 113/55 L 95 10/09/18 10:05 46 L 12 107/54 L 94 10/09/18 09:55 43 L 18 108/56 L 97 10/09/18 09:40 52 L 17 114/56 L 97 10/09/18 09:33 36.4 C L 59 L 10 L 108/57 L 97 10/09/18 03:49 36.5 C 62 16 95/58 L 94 10/08/18 22:42 36.5 C 55 L 16 101/65 93 10/08/18 19:34 36.7 C 60 16 122/76 90 10/08/18 18:46 36.8 C 51 L 18 131/70 93 10/08/18 18:07 36.3 C L 52 L 16 148/74 H 96 10/08/18 17:30 36.6 C 57 L 18 131/73 97 10/08/18 17:20 36.4 C L 53 L 16 133/73 100 10/08/18 17:10 54 L 19 133/68 100 10/08/18 17:00 54 L 15 132/71 99 10/08/18 16:50 52 L 13 128/72 100 10/08/18 16:40 36.2 C L 56 L 18 119/68 98 10/08/18 15:36 36.5 C 82 16 112/66 92 Pain Intensity Abdomen: Pain Intensity: 2 Notes Mental Status: alert / awake / arousable Patient Amnestic to Procedure: Yes Nausea / Vomiting: adequately controlled Pain: adequately controlled Airway Patency, RR, SpO2: stable & adequate BP & HR: stable & adequate Hydration State: stable & adequate Anesthetic Complications: no major complications apparent
[2018-10-09] MEDS ORDERED: HYDROCODONE/ACETAMOPHEN 5/325MG TAB PO PRN (10:50)
[2018-10-09] MEDS ORDERED: TAMSULOSIN HCL 0.4 MG CAP PO ONE (10:50)
[2018-10-09] MEDS: AVODART~ORDER AWAITING ACTION SCH ×3 (10:59→23:28)
[2018-10-09] MEDS: dilTIAZem HCL 120 MG CAPCR PO SCH (11:01)
[2018-10-09] MEDS: LISINOPRIL 5 MG TAB PO SCH (11:01)
[2018-10-09] MEDS: ASPIRIN 81 MG ECTAB PO SCH (11:08)
--- NOTE | 2018-10-09 16:23 | Hospitalist Progress Note ---
Date of Service October 09, 2018 Assessment & Plan (1) Choledocholithiasis with acute cholecystitis: Acute calculus cholecystitis Choledocholithiasis S/P ERCP:Removal of gallstones, Billiary Sphincterotomy, CBD stent placement S/P Laproscopic Cholecystectomy and Enterolysis POD #0 Advance diet as tolerated Appreciate GI/Surgery help Needs CBD stent removal in 4 weeks Monitor LFTs Continue IV Abx Pain control Diarrhea R/O C.diff if diarrhea reoccurs CAD stable Follows with [facility] cardiology Continue Aspirin, Cardizem, Lisinopril Hold Statin for now Hypertension stable Continue home meds Hyperglycemia A1C:5.9 Advise dietary changes Hyperlipidemia Hold statin DVT Px: SCDs RE Had Surgery today Code Status Full code Subjective Patient is seen and examined at beside Patient had cholecystectomy today Reports 4/10 Abd pain Also reports Urinary retention Denies chest pain, SOB, dizziness, nausea No Flatus/BM yet Physical Exam Vital Signs (Past 24 Hours): Last Vital Signs Temp 36.8 C 10/09/18 14:54 Pulse 64 10/09/18 14:54 Resp 17 10/09/18 14:54 BP 114/64 10/09/18 14:54 Pulse Ox 90 10/09/18 14:54 Physical Exam: Physical Exam: Vitals signs as noted above General Appearance:Moderately built and nourished, no apparent distress Head: normocephalic, Atraumatic Eyes: normal inspection, EOMI Neck: supple, Trachea midline Respiratory/Chest: Normal breath sounds, CTA Cardiovascular: S1, S2, No murmur Abdomen/GI:Soft, mild tender, Bowel sounds present Extremities/Musculoskelatal:normal inspection, no edema Neurologic/Psych:AAOX3, grossly no focal neurological deficits Skin: normal color, warm Results & Data Laboratory Results [facility] 10/09/18 06:15 Sodium 139 Potassium 4.0 Chloride 107 Carbon Dioxide 26 BUN 23 H Creatinine 0.84 Glucose 124 H Calcium 8.2 L Liver Function 10/09/18 Range/Units 06:15 Total Bilirubin 2.6 H (0.2-1) mg/dl Direct Bilirubin 0.6 H (0-0.2) mg/dl AST 172 H (15-37) U/L ALT 255 H (12-78) U/L Alkaline Phosphatase 229 H (45-117) U/L Albumin 2.9 L (3.4-5.0) gm/dl
[2018-10-09] MEDS ORDERED: COUGH DROP (SUGAR FREE) LOZ 24 LOZ/1 BOX BUCCAL STA (17:59)
[2018-10-09] MEDS: HYDROCODONE/ACETAMOPHEN 5/325MG TAB PO PRN ×2 (18:09→23:21)
[2018-10-09] MEDS: LORazepam 0.5 MG TAB PO SCH (21:17)
[2018-10-10] MEDS: cefTRIAXone SODIUM 1,000 MG in DEXTROSE 5% 50 ML IV SCH (05:15)
[2018-10-10] MEDS: metroNIDAZOLE 500 MG/100 ML BAG IV SCH (05:15)
[2018-10-10] MEDS: HYDROCODONE/ACETAMOPHEN 5/325MG TAB PO PRN ×2 (05:52→12:47)
[2018-10-10 06:07] LABS: Hematocrit (blood only) 37.8 % (42-52); Hemoglobin 12.3 g/dL (14.0-18.0); Mean Corpuscular Hgb Conc 32.5 g/dL (32-36); Mean Corpuscular Volume 91.7 fL (80-100); Mean Platelet Volume 12.4 fL (7.4-10.4); Platelet Count 178 K/uL (130-400); RDW Coefficient of Variation 13.1 % (11.5-14.5); RDW Standard Deviation 43.7 fL (36.4-46.3); Red Blood Count 4.12 M/uL (4.7-6.1); White Blood Count 13.19 K/uL (4.8-10.8)
[2018-10-10 06:37] LABS: Albumin Level 2.8 gm/dl (3.4-5.0); BUN Creatinine Ratio 24.9 (10-20); Creatinine Clr Calc Pharmacy 85.4 ml/min; Est GFR (African American) 97.2; Est GFR (Non-African American) 83.9; Potassium 3.6 mmol/L (3.5-5.1)
[2018-10-10 06:43] LABS: Albumin Globulin Ratio 0.9 (0.9-2); Bilirubin,Total 1.3 mg/dl (0.2-1); Globulin 3.1 gm/dl (2.5-4.0); Total Protein 5.9 gm/dl (6.4-8.2)
[2018-10-10] MEDS ORDERED: TAMSULOSIN HCL 0.4 MG CAP PO SCH (09:00)
[2018-10-10] MEDS: dilTIAZem HCL 120 MG CAPCR PO SCH (09:02)
[2018-10-10] MEDS: AVODART~ORDER AWAITING ACTION SCH (09:02)
[2018-10-10] MEDS: ASPIRIN 81 MG ECTAB PO SCH (09:03)
[2018-10-10] MEDS: LISINOPRIL 5 MG TAB PO SCH (09:03)
--- NOTE | 2018-10-10 12:14 | Hospitalist Progress Note ---
Date of Service October 10, 2018 Assessment & Plan (1) Choledocholithiasis with acute cholecystitis: Acute calculus cholecystitis Choledocholithiasis S/P ERCP:Removal of gallstones, Billiary Sphincterotomy, CBD stent placement S/P Laproscopic Cholecystectomy and Enterolysis POD #1 Tolerating diet Appreciate GI/Surgery help Needs CBD stent removal in 4 weeks LFTs Improved Continue IV Abx--DC upon discharge Pain control Diarrhea R/O C.diff if diarrhea reoccurs No recurrence CAD stable Follows with [facility] cardiology Continue Aspirin, Cardizem, Lisinopril Resume Statin Hypertension stable Continue home meds Hyperglycemia A1C:5.9 Advise dietary changes Hyperlipidemia Resume statin DVT Px: SCDs Code Status Full code Subjective Patient is seen and examined at beside Doing much better today + flatus Tolerating diet Abd pain much improved Able to Urinate without issues Denies chest pain, SOB, dizziness, nausea Physical Exam Vital Signs (Past 24 Hours): Last Vital Signs Temp 36.7 C 10/10/18 07:22 Pulse 56 L 10/10/18 07:22 Resp 16 10/10/18 07:22 BP 115/68 10/10/18 07:22 Pulse Ox 91 10/10/18 07:22 Physical Exam: Physical Exam: Vitals signs as noted above General Appearance:Moderately built and nourished, no apparent distress Head: normocephalic, Atraumatic Eyes: normal inspection, EOMI Neck: supple, Trachea midline Respiratory/Chest: Normal breath sounds, CTA Cardiovascular: S1, S2, No murmur Abdomen/GI:Soft, mild tender, Bowel sounds present Extremities/Musculoskelatal:normal inspection, no edema Neurologic/Psych:AAOX3, grossly no focal neurological deficits Skin: normal color, warm Results & Data Laboratory Results Short CBC 10/10/18 Range/Units 05:35 WBC 13.19 H (4.8-10.8) K/uL Hgb 12.3 L (14.0-18.0) g/dL Hct 37.8 L (42-52) % Plt Count 178 (130-400) K/uL BMP 10/10/18 05:35 Sodium 139 Potassium 3.6 Chloride 105 Carbon Dioxide 29 BUN 23 H Creatinine 0.91 Glucose 126 H Calcium 8.0 L Liver Function 10/10/18 Range/Units 05:35 Total Bilirubin 1.3 H (0.2-1) mg/dl AST 108 H (15-37) U/L ALT 204 H (12-78) U/L Alkaline Phosphatase 175 H (45-117) U/L Albumin 2.8 L (3.4-5.0) gm/dl
--- NOTE | 2018-10-10 12:39 | Discharge Summary ---
Date of Service October 10, 2018 Admission HPI Per Admitting Provider History obtained from patient, family, and records. Medical history significant for CAD, hypertension, hyperlipidemia, BPH, urolithiasis. Recent confinement October 2017 under urology service for TURP, bladder stone li thotripsy. 2 months ago patient and partner had the "stomach flu" which somewhat resolved. Diarrhea symptoms followed by intermittent achy upper abdominal discomfort with intermittent nausea and emesis, worsened with food intake. Patient seen at PCPs office 3 weeks ago. Abdominal ultrasound showed possible cirrhosis, hepatic and renal cysts, hydropic gallbladder with cholelithiasis, CT suggested for further evaluation of findings. Multiple hepatic cysts, distended gallbladder with cholelithiasis, bilateral renal cysts. Outpatient CT abdomen pelvis study done October 05 showed multiple hepatic cysts, distended gallbladder with cholelithiasis. PCP yet to contact patient on disposition for abnormal imaging results. Yesterday afternoon patient noted worsening upper a achy bdominal pain followed emesis symptoms. Loose stools, nonbloody, no fever, no chills. 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 Admission Exam Per Admitting Provider GENERAL: Comfortable, pleasant, no respiratory distress SKIN: Normal color, warm HEENT: Partial alopecia, pink palpebral conjunctivae, no ptosis, dry buccal mucosa, nasal cannula in place NECK : Supple, no tenderness CHEST : CTA, no tenderness HEART : Bradycardic , no obvious murmurs ABDOMEN: Some distention, minimal epigastric tenderness EXTREMITIES : Chronic RLE swelling, no tenderness, no other conspicuous deformities noted NEUROLOGIC : Coherent, no facial asymmetry, no other gross focality Principal Diagnosis Discharge Information Discharge Diagnosis Choledocholithiasis with acute cholecystitis Discharge Goals Decrease discomfort,Improve disease control, Improve function Discharge Activity Limitations Per instructions/follow-up Discharge Data Allergies Allergy/AdvReac Type Severity Reaction Status Date / Time Bactrim Allergy Unknown Rash/Hives Verified 10/27/17 05:39 sulfamethoxazole Allergy Unknown Rash/Hives Verified 10/07/18 23:33 trimethoprim Allergy Unknown Rash/Hives Verified 10/07/18 23:33 Consultations 10/08/18 02:58 ED Decision to Admit Stat 10/08/18 06:01 Consult General Surgery Routine 10/08/18 08:15 Consult Gastroenterology Routine Procedures Performed Operation Date: 10/08/18 09:00 Actual Procedures p Endoscopic Retrograde Cholangiopancreatogram(Not Applicable) - Mary Dior MD Operation Date: 10/09/18 07:30 Actual Procedures p Laparoscopic Cholecystectomy(Not Applicable) - Graeme Lindsay, DO ERCP: Impression: - Choledocholithiasis was found. Complete removal was accomplished by biliary sphincterotomy and balloon extraction. - One plastic stent was placed into the common bile duct. Recommendation: - [facility]. - Clear liquid diet. - Repeat ERCP in 4 weeks to remove stent. - Lap Dahlia tomorrow per surgery. - Recall Gi if needed. Gall Bladder USD: Findings highly suspicious for acute calculus cholecystitis. Surgical consultation recommended. Confirmation with HIDA scan could be obtained if there is clinical concern. CXR: 1. Linear left basilar opacity which favors atelectasis. 2. Low lung volumes. Ordered Studies 10/08/18 00:40 US gallbladder Urgent 10/08/18 04:18 MR MRCP Routine 10/08/18 15:00 FL ERCP biliary ductal Routine Hospital Course (1) Choledocholithiasis with acute cholecystitis: Acute calculus cholecystitis Choledocholithiasis S/P ERCP:Removal of gallstones, Billiary Sphincterotomy, CBD stent placement S/P Laproscopic Cholecystectomy and Enterolysis POD #1 Tolerating diet Appreciate GI/Surgery help Needs CBD stent removal in 4 weeks LFTs Improved Continue IV Abx--DC upon discharge Pain control Diarrhea R/O C.diff if diarrhea reoccurs No recurrence CAD stable Follows with [facility] cardiology Continue Aspirin, Cardizem, Lisinopril Resume Statin Hypertension stable Continue home meds Hyperglycemia A1C:5.9 Advise dietary changes Hyperlipidemia Resume statin DVT Px: SCDs Code Status Full code Total Time Total Time Spent Total Time Spent (In Minutes): 36 minutes Total Time Includes: Examination of the Patient, Discharge Planning, Medication Reconciliation, Communication With Other Providers and Other Discharge Plan Discharge Items Patient Disposition: Home - Self-Care Reason For Visit: CHOLECYSTITIS Discharge Diagnosis: Choledocholithiasis with acute cholecystitis Discharge Goals: Decrease discomfort, Improve disease control and Improve function Activity: Per 'Additional Instructions' section Exercise/Sports: Gradually increase as tolerated Non-emergency contact: Primary Care Provider, Surgeon, Marine Cargo Surveyor and Urologist Call non-emergency contact if: you have any medication questions, your symptoms worsen, your pain is not controlled, your pain is worsening, your pain is unusual for you, your pain is concerning for you, you have a fever, your wound has increased redness, your wound has increased drainage and your wound pain has increased Follow-up/Referrals: Graeme Lindsay DO [Surgeon] - Helder Rangel [Primary Care Provider] - Diet: Heart Healthy Addtl Provider Instructions: Follow up with your PCP in 1 week Follow up with your Surgeon as advised by your Surgeon Follow up with your Marine Cargo Surveyor in 4 weeks for stent removal Consider follow up with your Urologist if you recurrence of trouble urinating Seek immediate medical attention if your symptoms reoccur or worsen Prescriptions: New hydrocodone-acetaminophen [[place]] 5-325 mg Tablet 1 tab PO Q8H PRN (Reason: pain) 5 Days Qty: 15 RF: 0 tamsulosin 0.4 mg Capsule 0.4 mg PO QAM 15 Days Qty: 15 RF: 0 Continued atorvastatin 80 mg Tablet 80 mg PO HS RF: 0 aspirin 81 mg Tablet,Delayed Release (Dr/Ec) 81 mg PO DAILY RF: 0 lorazepam [Ativan] 0.5 mg Tablet 0.5 mg PO HS RF: 0 nitroglycerin [Nitrostat] 0.4 mg Tablet, Sublingual 0.4 mg Sublingual UD PRN (Reason: Chest Pain) RF: 0 diltiazem HCl 120 mg Capsule,Extended Release 24hr 120 mg PO QAM RF: 0 lisinopril 5 mg Tablet 5 mg PO QAM RF: 0 dutasteride 0.5 mg Capsule 0.5 mg PO HS RF: 0 Stand-Alone Forms: Call Back Authorization, Replaced By [facility], [facility] Discharge Orders: Discharge Order (Routine); Ordered 10/10/18 Ordered By: Henry Turcios Admission Data Admit Date/Time: 10/08/18 04:23 Attending Provider: Henry Turcios Admit Provider: Alphonso Pa Primary Care Provider: Helder Rangel Other Providers: Alphonso Pa ; Bob Adam ; Natalio Villatoro ; Kecia Spence ; Suzi Martin ; Vicente Brooks ; Steven Barrow ; Kacie Mckeon ; Sindy Ac ; Mark Harding ; Vicente Gale ; Maeve Echavarria ; Pallavi Browning ; Ally Polk ; Miroslava Murcia ; Mary Dior Service: Surgical Services Other Interventions: Discharge Summary Assessment (RN) Last Done: 10/10/18 12:59 DC Date/Time DO NOT enter until pt leaves facility: 10/10/18 14:37
--- NOTE | 2018-10-10 14:08 | Surgery Progress Note ---
Date of Service October 10, 2018 Assessment & Plan (1) Choledocholithiasis with acute cholecystitis: pod 1 labs improving ok for d/c instructions given f/u in 1-2 weeks. Subjective pt feeling better. would like to go home Physical Exam Vital Signs (Past 24 Hours): Last Vital Signs Temp 36.7 C 10/10/18 12:59 Pulse 58 L 10/10/18 12:59 Resp 16 10/10/18 12:59 BP 115/68 10/10/18 12:59 Pulse Ox 91 10/10/18 12:59 Physical Exam: alert. nad abd: soft. expected tenderness. wounds look good.
== END 2018-10-10 14:37 | disposition home or self-care (01) | DRG 419 ==
LOC: ED 22:28 → 3W 10-08 04:23